=== PATIENT | male | born 1945 | race Caucasian/White ===

== ENCOUNTER 2017-01-21 07:13 | Emergency (ER) | payer OTHER ==
[2017-01-21 07:21] VITALS: BP 150/71
--- NOTE | 2017-01-21 07:55 | ER Document Report ---
ED Skin Rash/Insect Bite/Abscs - General Chief Complaint: Skin Problem Stated Complaint: POSSIBLE BUG BITE Time seen by provider: 07:46 Mode of Arrival: Ambulatory Information source: Patient Notes: 71-year-old male presents to ED for small blister on the lateral aspect of the upper left foot. No signs of infection no drainage small open wound where it has been scratched open. He is a diabetic and noticed this wound 5 days ago it is not getting infected but it is not getting better he states. TRAVEL OUTSIDE OF THE [place] IN LAST 30 DAYS: No - HPI Patient complains to provider of: Skin rash/lesion Onset: Other - 5 days Onset/Duration: Gradual Quality of pain: Sharp Severity: Moderate Pain Level: 3 Skin Character: Other - Small open blister Skin Temperature: Warm Quality of rash: Painful Identify cause: No Exacerbated by: Denies Relieved by: Denies Similar symptoms previously: No Recently seen / treated by doctor: No - Related Data Allergies/Adverse Reactions: No Known Allergies Allergy (Verified 01/21/17 07:21) Past Medical History - General Information source: Patient - Social History Smoking Status: Never Smoker Cigarette use (# per day): No Chew tobacco use (# tins/day): No Smoking Education Provided: No Frequency of alcohol use: None Drug Abuse: None Occupation: retired Lives with: Family Family History: CAD, DM, Hyperlipidemia, Hypertension, Malignancy, Thyroid Disfunction, Other - Black lung Patient has suicidal ideation: No Patient has homicidal ideation: No - Past Medical History Cardiac Medical History: Reports: Hx Heart Attack, Hx Hypercholesterolemia, Hx Hypertension Pulmonary Medical History: Reports: Hx Bronchitis EENT Medical History: Reports: None Neurological Medical History: Reports: None Endocrine Medical History: Reports: Hx Diabetes Mellitus Type 2, Hx Hypothyroidism Renal/ Medical History: Reports: None Malignancy Medical History: Reports None GI Medical History: Reports: None Musculoskeltal Medical History: Reports Hx Arthritis, Reports Hx Musculoskeletal Trauma Skin Medical History: Reports None Psychiatric Medical History: Reports: None Traumatic Medical History: Reports: Hx Fractures Infectious Medical History: Reports: None Surgical Hx: Negative Past Surgical History: Reports: None - Immunizations Hx Diphtheria, Pertussis, Tetanus Vaccination: No Review of Systems - Review of Systems Constitutional: No symptoms reported EENT: No symptoms reported Cardiovascular: No symptoms reported Respiratory: No symptoms reported Gastrointestinal: No symptoms reported Genitourinary: No symptoms reported Male Genitourinary: No symptoms reported Musculoskeletal: No symptoms reported Skin: Other - Small open blister to the lateral aspect of the left upper foot Hematologic/Lymphatic: No symptoms reported Neurological/Psychological: No symptoms reported -: Yes All other systems reviewed and negative Physical Exam - Vital signs Vitals: Temp Pulse Resp BP Pulse Ox 97.4 F 71 18 150/71 H 97 01/21/17 07:16 01/21/17 07:16 01/21/17 07:16 01/21/17 07:16 01/21/17 07:16 Interpretation: Normal - General General appearance: Appears well, Alert - HEENT Head: Normocephalic, Atraumatic Eyes: Normal Pupils: PERRL - Respiratory Respiratory status: No respiratory distress Chest status: Nontender Breath sounds: Normal Chest palpation: Normal - Cardiovascular Rhythm: Regular Heart sounds: Normal auscultation Murmur: No - Abdominal Inspection: Normal Distension: No distension Bowel sounds: Normal Tenderness: Nontender Organomegaly: No organomegaly - Back Back: Normal, Nontender - Extremities General upper extremity: Normal inspection, Nontender, Normal color, Normal ROM , Normal temperature General lower extremity: Normal color, Normal ROM, Normal temperature, Normal weight bearing. No: Kris's sign Ankle: Tender, Other - Opened blister to the lateral aspect of the left upper foot no drainage no signs of infection - Neurological Neuro grossly intact: Yes Cognition: Normal Orientation: AAOx4 Leonila Coma Scale Eye Opening: Spontaneous Leonila Coma Scale Verbal: Oriented Leonila Coma Scale Motor: Obeys Commands Leonila Coma Scale Total: 15 Speech: Normal Motor strength normal: LUE, RUE, LLE, RLE Sensory: Normal - Psychological Associated symptoms: Normal affect, Normal mood - Skin Skin Temperature: Warm Skin Moisture: Dry Skin Color: Normal Course - Vital Signs Vital signs: Temp Pulse Resp BP Pulse Ox 97.4 F 71 18 150/71 H 97 01/21/17 07:18 01/21/17 07:18 01/21/17 07:18 01/21/17 07:18 01/21/17 07:18 Discharge - Discharge Clinical Impression: blister to uppper lateral left foot Disposition: HOME, SELF-CARE Instructions: Family Physicians / Practices Additional Instructions: You have an open blister left lateral foot. This will need to be clean with warm soapy for 2-3 times a day and covered with bacitracin and a sterile gauze or Band-Aid. This will need to be checked each time he change the dressing as your diabetic to ensure that is not infected. FOLLOW-UP CARE: If you have been referred to a physician for follow-up care, call the physician s office for an appointment as you were instructed or within the next two days. If you experience worsening or a significant change in your symptoms, notify the physician immediately or return to the Emergency Department at any time for re-evaluation. Forms: Elevated Blood Pressure
== END 2017-01-21 08:00 | disposition home or self-care (01) ==
LOC: ER 07:13
DX: S90.822A Blister (nonthermal), left foot, initial encounter (principal); X58.XXXA Exposure to other specified factors, initial encounter; E78.00 Pure hypercholesterolemia, unspecified; I10 Essential (primary) hypertension; E11.9 Type 2 diabetes mellitus without complications; E03.9 Hypothyroidism, unspecified; I25.2 Old myocardial infarction
CPT/HCPCS: 99281

== ENCOUNTER 2018-01-01 12:27 | Emergency (ER) | payer MEDICARE, OTHER ==
--- NOTE | 2018-01-01 12:42 | ER Document Report ---
ED Medical Screen (RME) - General Chief Complaint: Numbness of Arm Stated Complaint: LEFT ARM NUMBNESS Time Seen by Provider: 01/01/18 12:42 Notes: Patient is a difficult historian. Patient has several different complaints. He does state that he woke up this morning and got the sudden onset of left hand numbness at 10 AM. He states this is an arm that has given him trouble for years with some fingertip numbness and chronic pain. He states 1 week ago he had an MRI done which was unremarkable. TRAVEL OUTSIDE OF THE [place] IN LAST 30 DAYS: No - Related Data Allergies/Adverse Reactions: No Known Allergies Allergy (Verified 01/21/17 07:21) Past Medical History - Past Medical History Cardiac Medical History: Reports: Hx Heart Attack, Hx Hypercholesterolemia, Hx Hypertension Pulmonary Medical History: Reports: Hx Bronchitis Endocrine Medical History: Reports: Hx Diabetes Mellitus Type 2, Hx Hypothyroidism Renal/ Medical History: Denies: Hx Peritoneal Dialysis Musculoskeltal Medical History: Reports Hx Arthritis, Reports Hx Musculoskeletal Trauma Traumatic Medical History: Reports: Hx Fractures - Immunizations Hx Diphtheria, Pertussis, Tetanus Vaccination: No Physical Exam - Vital signs Vitals: Temp Pulse Resp BP Pulse Ox 97.8 F 73 16 170/78 H 98 01/01/18 12:33 01/01/18 12:33 01/01/18 12:33 01/01/18 12:33 01/01/18 12:33 Course - Vital Signs Vital signs: Temp Pulse Resp BP Pulse Ox 97.8 F 73 16 170/78 H 98 01/01/18 12:33 01/01/18 12:33 01/01/18 12:33 01/01/18 12:33 01/01/18 12:33
--- NOTE | 2018-01-01 13:04 | RADIOLOGY REPORT (SQ) ---
EXAM DESCRIPTION: CT HEAD WITHOUT COMPLETED DATE/TIME: 01/01/2018 12:45 pm REASON FOR STUDY: L arm numbness, confusion COMPARISON: None. TECHNIQUE: Axial images acquired through the brain without intravenous contrast. Images reviewed wi th bone, brain and subdural windows. Additional sagittal and coronal reconstructions were generated. Images stored on PACS. All CT scanners at this facility use dose modulation, iterative reconstruction, and/or weight based d osing when appropriate to reduce radiation dose to as low as reasonably achievable (ALARA). [facility]: Dose Right [facility]: CareDose [facility]: Dose Right [facility]: Teradose 4D [facility]: Smart Conformiq RADIATION DOSE: CT Rad equipment meets quality standard of care and radiation dose reduction techniq ues were employed. CTDIvol: 53.2 mGy. DLP: 964 mGy-cm.mGy. LIMITATIONS: None. FINDINGS: VENTRICLES: Prominent. CEREBRUM: No masses. No hemorrhage. No midline shift. Areas of low density in the white matter mos t likely due to chronic micro-vascular ischemic change. No evidence for acute infarction. CEREBELLUM: No masses. No hemorrhage. No alteration of density. No evidence for acute infarction. EXTRAAXIAL SPACES: Age-related involutional change. No fluid collections. No masses. ORBITS AND GLOBE: No intra- or extraconal masses. Normal contour of globe without masses. CALVARIUM: No fracture. PARANASAL SINUSES: No fluid or mucosal thickening. SOFT TISSUES: No mass or hematoma. OTHER: No other significant finding. IMPRESSION: CHRONIC CHANGES OF ATROPHY AND MICROVASCULAR ISCHEMIA. NO ACUTE PROCESS. EVIDENCE OF ACUTE STROKE: NO. COMMENT: Pertinent positive or negative findings of the imaging study reported as a CRITICAL EXAM t gideon PAIGE MD at12:58 on 01/01/2018. Category of Critical Exam: Stroke alert. TECHNICAL DOCUMENTATION: JOB ID: [id number] Quality ID # [id number]: Final reports with documentation of one or more dose reduction techniques (e.g., Au tomated exposure control, adjustment of the mA and/or kV according to patient size, use of iterative reconstruction technique) 2010 [employer]- All Rights Reserved Reading location - IP/workstation name: [email or web address]
--- NOTE | 2018-01-01 13:10 | RADIOLOGY REPORT (SQ) ---
EXAM DESCRIPTION: CHEST SINGLE VIEW COMPLETED DATE/TIME: 01/01/2018 12:50 pm REASON FOR STUDY: STROKE PROTOCOL COMPARISON: None. EXAM PARAMETERS: NUMBER OF VIEWS: One view. TECHNIQUE: Single frontal radiographic view of the chest acquired. RADIATION DOSE: NA LIMITATIONS: None. FINDINGS: LUNGS AND PLEURA: No opacities, masses or pneumothorax. No pleural effusion. MEDIASTINUM AND HILAR STRUCTURES: No masses. Contour normal. HEART AND VASCULAR STRUCTURES: Heart normal in size. Normal vasculature. BONES: No acute findings. HARDWARE: None in the chest. OTHER: No other significant finding. IMPRESSION: NO ACUTE RADIOGRAPHIC FINDING IN THE CHEST. TECHNICAL DOCUMENTATION: JOB ID: [id number] [employer]- All Rights Reserved Reading location - IP/workstation name: [email or web address]
[2018-01-01] MEDS ORDERED: ASPIRIN 81 MG TABLET, CHEWABLE PO ONE (13:21)
[2018-01-01 13:46] LABS: ABSOLUTE BASOPHILS # (AUTO) 0.1 10^3/uL (0.0-0.2); ABSOLUTE EOSINOPHILS # (AUTO) 0.3 10^3/uL (0.0-0.6); ABSOLUTE LYMPHOCYTES (AUTO) 2.4 10^3/uL (0.5-4.7); ABSOLUTE MONOCYTES (AUTO) 0.7 10^3/uL (0.1-1.4); ABSOLUTE NEUT (AUTO) 6.1 10^3/uL (1.7-8.2); BASOPHILS % (AUTO) 1.2 % (0-2); EOSINOPHILS % (AUTO) 3.2 % (0-6); HEMATOCRIT 35.6 % (37.9-51.0); LYMPHOCYTES % (AUTO) 25.3 % (13-45); MEAN CORPUSCULAR HEMOGLOBIN 29.1 pg (27.0-33.4); MEAN CORPUSCULAR HGB CONC 33.9 g/dL (32.0-36.0); MEAN CORPUSCULAR VOLUME 86 fl (80-97); MONOCYTES % (AUTO) 7.4 % (3-13); PLATELET COUNT 217 10^3/uL (150-450); RED BLOOD COUNT 4.13 10^6/uL (4.35-5.55); RED CELL DISTRIBUTION WIDTH 14.1 % (11.5-14.0); SEGMENTED NEUTROPHILS % (AUTO) 62.9 % (42-78); TOTAL CELLS COUNTED % (AUTO) 100 %; WHITE BLOOD COUNT 9.7 10^3/uL (4.0-10.5)
[2018-01-01 14:09] LABS: ALANINE AMINOTRANSFERASE 28 U/L (21-72); ALBUMIN 4.2 g/dL (3.5-5.0); ALKALINE PHOSPHATASE 74 U/L (38-126); ANION GAP 13 (5-19); ASPARTATE AMINO TRANSFERASE 23 U/L (17-59); BILIRUBIN,DIRECT 0.3 mg/dL (0.0-0.4); BILIRUBIN,TOTAL 0.3 mg/dL (0.2-1.3); BLOOD UREA NITROGEN 23 mg/dL (7-20); CALCIUM 9.6 mg/dL (8.4-10.2); CARBON DIOXIDE 25 mmol/L (22-30); CHLORIDE 102 mmol/L (98-107); CREATINE KINASE 47 U/L (55-170); GLUCOSE 131 mg/dL (75-110); POTASSIUM 4.4 mmol/L (3.6-5.0); SODIUM 140.3 mmol/L (137-145)
[2018-01-01 14:28] LABS: TROPONIN I < 0.012 ng/mL
--- NOTE | 2018-01-01 14:37 | EKG REPORT ---
SEVERITY:- ABNORMAL ECG - SINUS RHYTHM NONSPECIFIC INTRAVENTRICULAR CONDUCTION DELAY : Confirmed by: Gordy Vargas MD 01-Jan-2018 14:37:01
--- NOTE | 2018-01-01 15:07 | ER Document Report ---
ED General - General Chief Complaint: Numbness of Arm Stated Complaint: LEFT ARM NUMBNESS Time Seen by Provider: 01/01/18 12:42 Mode of Arrival: Ambulatory Information source: Patient Notes: History of complain-72 years old male with a chronic history of neck pain left shoulder pain and left arm numbness presents today with exacerbation. The pain radiated from the neck all the way down to the arm. He was sent over here by the primary care physician to rule out cardiac event. Denied any precordial chest pain nausea vomiting palpitation or diaphoresis. REVIEW OF SYSTEMS: CONSTITUTIONAL : Denies fever, chills, or sweats. Denies recent illness. EENT: Denies eye, ear, throat, or mouth pain or symptoms. Denies nasal or sinus congestion or discharge. Denies throat, tongue, or mouth swelling or difficulty swallowing. CARDIOVASCULAR: Denies chest pain. Denies palpitations or racing or irregular heart beat. Denies ankle edema. RESPIRATORY: Denies cough, cold, or chest congestion. Denies shortness of breath, difficulty breathing, or wheezing. GASTROINTESTINAL: Denies abdominal pain or distention. Denies nausea, vomiting , or diarrhea. Denies blood in vomitus, stools, or per rectum. Denies black, tarry stools. Denies constipation. GENITOURINARY: Denies difficulty urinating, painful urination, burning, frequency, blood in urine, or discharge. MUSCULOSKELETAL: Denies back or neck pain or stiffness. Denies joint pain or swelling. SKIN: Denies rash, lesions or sores. HEMATOLOGIC : Denies easy bruising or bleeding. LYMPHATIC: Denies swollen, enlarged glands. NEUROLOGICAL: Denies confusion or altered mental status. Denies passing out or loss of consciousness. Denies dizziness or lightheadedness. Denies headache. Denies weakness or paralysis or loss of use of either side. Denies problems with gait or speech. Denies sensory loss, numbness, or tingling. Denies seizures. PSYCHIATRIC: Denies anxiety or stress. Denies depression, suicidal ideation, or homicidal ideation. ALL OTHER SYSTEMS REVIEWED AND NEGATIVE. Dictation was performed using [employer] recognition software PHYSICAL EXAMINATION: GENERAL: Well-appearing, well-nourished and in no acute distress. HEAD: Atraumatic, normocephalic. EYES: Pupils equal round and reactive to light, extraocular movements intact, sclera anicteric, conjunctiva are normal. ENT: Nares patent, oropharynx clear without exudates. Moist mucous membranes. NECK: Normal range of motion, supple without lymphadenopathy Sharp tenderness were noted on palpation over the left paraspinal muscles including scalene and sternocleidomastoid muscles. LUNGS: Breath sounds clear to auscultation bilaterally and equal. No wheezes rales or rhonchi. HEART: Regular rate and rhythm without murmurs ABDOMEN: Soft, nontender, nondistended abdomen. No guarding, no rebound. No masses appreciated. Musculoskeletal: Normal range of motion, no pitting or edema. No cyanosis. Right shoulder range of motion is within normal limit. Neurovascular function distally was within normal limit. NEUROLOGICAL: Cranial nerves grossly intact. Normal speech, normal gait. Normal sensory, motor exams PSYCH: Normal mood, normal affect. SKIN: Warm, Dry, normal turgor, no rashes or lesions noted. History of complain history of complain TRAVEL OUTSIDE OF THE [place] IN LAST 30 DAYS: No - Related Data Allergies/Adverse Reactions: No Known Allergies Allergy (Verified 01/21/17 07:21) Past Medical History - General Information source: Patient - Social History Smoking Status: Former Smoker Chew tobacco use (# tins/day): No Drug Abuse: None Family History: CAD, DM, Hyperlipidemia, Hypertension, Malignancy, Thyroid Disfunction, Other - Black lung Patient has suicidal ideation: No Patient has homicidal ideation: No - Past Medical History Cardiac Medical History: Reports: Hx Heart Attack, Hx Hypercholesterolemia, Hx Hypertension Pulmonary Medical History: Reports: Hx Bronchitis Endocrine Medical History: Reports: Hx Diabetes Mellitus Type 2, Hx Hypothyroidism Renal/ Medical History: Denies: Hx Peritoneal Dialysis Musculoskeltal Medical History: Reports Hx Arthritis, Reports Hx Musculoskeletal Trauma Traumatic Medical History: Reports: Hx Fractures - Immunizations Hx Diphtheria, Pertussis, Tetanus Vaccination: No Review of Systems - Review of Systems Notes: Unremarkable Constitutional: denies: No symptoms reported, See HPI, Chills, Diaphoresis, Fever, Malaise, Weakness, Other, Weight gain, Weight loss, Recent illness EENT: denies: No symptoms reported, See HPI, Eye pain, Eye discharge, Blurred vision, Tearing, Double vision, Ear pain, Ear discharge, Nose pain, Nose congestion, Nose discharge, Sinus pressure, Sinus discharge, Throat pain, Difficulty swallowing, Throat swelling, Mouth pain, Mouth swelling, Dental problem, Vertigo, Other Cardiovascular: denies: No symptoms reported, See HPI, Chest pain, Palpitations , Heart racing, Orthopnea, Dyspnea, Syncope, Dizziness, Lightheaded, Edema, Other, Paroxysmal Nocturnal Dysp Respiratory: denies: No symptoms reported, See HPI, Cough, Hurts to breathe, Hemoptysis, Short of breath, Sputum, Stridor, Wheezing, Other Gastrointestinal: denies: No symptoms reported, See HPI, Abdomen distended, Abdominal pain, Diarrhea, Nausea, Vomiting, Constipation, Blood streaked bowels , Poor appetite, Poor fluid intake, Blood in vomit, Black stools, Rectal bleeding, Last bowel movement, Fecal incontinence, Other Genitourinary: denies: No symptoms reported, See HPI, Burning, Dysuria, Discharge, Frequency, Flank pain, Hematuria, Incontinence, Pain, Urgency, Retention, Other Male Genitourinary: denies: No symptoms reported, See HPI, Erectile dysfunction , Testicular pain, Penile discharge, Other Skin: denies: No symptoms reported, See HPI, Change in color, Change in hair/ nails, Dryness, Lesions, Lumps, Rash, Other Neurological/Psychological: denies: No symptoms reported, See HPI, Confusion, Dementia, Depression, Hallucinations, Anxiety, Homicidal ideation, Sensory change, Weakness, Gait changes, Loss of power, Paralysis, Seizure, Lost consciousness, Headaches, Speech impairment, Numbness, Suicidal ideation, Tingling, Tremor, Other Physical Exam - Vital signs Vitals: Temp Pulse Resp BP Pulse Ox 97.8 F 73 16 170/78 H 98 01/01/18 12:33 01/01/18 12:33 01/01/18 12:01/01/18 12:01/01/18 12:33 Course - Re-evaluation Re-evalutation: 01/01/18 15:04 His enzyme and cardiogram was normal. He was discharged home with instruction to follow-up with neurology and possible MRA of the neck. - Vital Signs Vital signs: Temp Pulse Resp BP Pulse Ox 97.8 F 73 16 170/78 H 100 01/01/18 12:33 01/01/18 12:33 01/01/18 12:33 01/01/18 12:01/01/18 13:22 - Laboratory Result Diagrams: 01/01/18 13:10 01/01/18 13:10 Laboratory results interpreted by me: 01/01/18 01/01/18 01/01/18 13:09 13:10 13:10 RBC 4.13 L Hgb 12.0 L Hct 35.6 L RDW 14.1 H BUN 23 H Glucose 131 H POC Glucose 142 H Creatine Kinase 47 L - Diagnostic Test Radiology reviewed: Reports reviewed - 1. CT of the brain reported by radiologist as no acute bleed, microvascular disease 2. Chest x-ray reported by radiologist as unremarkable. - EKG Interpretation by Me EKG shows normal: Sinus rhythm Rate: Normal Rhythm: NSR - Normal sinus rhythm at the rate of 72 bpm normal axis no acute ST elevation ST depression T-wave inversion noted. Discharge - Discharge Clinical Impression: Cervical radiculopathy Condition: Fair Disposition: HOME, SELF-CARE Instructions: Radiculopathy ([facility]) Prescriptions: Hydrocodone/Acetaminophen [Vicodin 5-300 mg Tablet] 1 each PO Q6HP PRN #14 tablet PRN Reason: Baclofen [Baclofen 10 mg Tablet] 10 mg PO TID #30 tablet
[2018-01-01 16:09] VITALS: BP 140/76
== END 2018-01-01 15:40 | disposition home or self-care (01) ==
LOC: ER 12:27
DX: M54.12 Radiculopathy, cervical region (principal); R20.0 Anesthesia of skin; M54.2 Cervicalgia; G89.29 Other chronic pain; M25.512 Pain in left shoulder; Z87.891 Personal history of nicotine dependence; I25.2 Old myocardial infarction; I10 Essential (primary) hypertension; E11.9 Type 2 diabetes mellitus without complications
CPT/HCPCS: 36415; 70450; 71045; 80053; 82550; 82553; 82962; 84484; 85025; 93005; 93010; 99285

== ENCOUNTER 2018-12-11 14:41 | Emergency (ER) | payer OTHER ==
--- NOTE | 2018-12-11 15:59 | ER Document Report ---
ED Medical Screen (RME) - General Chief Complaint: Numbness of Arm Stated Complaint: ARM NUMBNESS Time Seen by Provider: 12/11/18 15:54 Mode of Arrival: Ambulatory Information source: Patient Notes: 73-year-old male presents to ED for complaint of numbness to the left arm and leg intermittently for the last 2 days today is the third day. He states earlier he was not able to move the left arm and that scared him so he came to the emergency room. He has a history of diabetes high blood pressure hypothyroid and coronary artery disease. His Accu-Chek in the emergency room was 316.. Patient is alert oriented respirations regular and unlabored speaking in full sentences he is able to walk with a steady gait. He is with his . I have greeted and performed a rapid initial assessment of this patient. A comprehensive ED assessment and evaluation of the patient, analysis of test results and completion of medical decision making process will be conducted by an additional ED providers. TRAVEL OUTSIDE OF THE [place] IN LAST 30 DAYS: No - Related Data Allergies/Adverse Reactions: No Known Allergies Allergy (Verified 12/11/18 14:48) Past Medical History - Social History Chew tobacco use (# tins/day): No Frequency of alcohol use: None Drug Abuse: None - Past Medical History Cardiac Medical History: Reports: Hx Heart Attack, Hx Hypercholesterolemia, Hx H ypertension Pulmonary Medical History: Reports: Hx Bronchitis Endocrine Medical History: Reports: Hx Diabetes Mellitus Type 2, Hx Hypothyroidism Renal/ Medical History: Denies: Hx Peritoneal Dialysis Musculoskeltal Medical History: Reports Hx Arthritis, Reports Hx Musculoskeletal Trauma Traumatic Medical History: Reports: Hx Fractures - Immunizations Hx Diphtheria, Pertussis, Tetanus Vaccination: No Physical Exam - Vital signs Vitals: Temp Pulse Resp BP Pulse Ox 97.5 F 85 17 157/68 H 94 12/11/18 14:59 12/11/18 14:59 12/11/18 14:59 12/11/18 14:59 12/11/18 14:59 Course - Vital Signs Vital signs: Temp Pulse Resp BP Pulse Ox 97.5 F 85 17 157/68 H 94 12/11/18 14:59 12/11/18 14:59 12/11/18 14:59 12/11/18 14:59 12/11/18 14:59
[2018-12-11 16:28] LABS: ABSOLUTE BASOPHILS # (AUTO) 0.1 10^3/uL (0.0-0.2); ABSOLUTE EOSINOPHILS # (AUTO) 0.2 10^3/uL (0.0-0.6); ABSOLUTE LYMPHOCYTES (AUTO) 2.1 10^3/uL (0.5-4.7); ABSOLUTE MONOCYTES (AUTO) 0.5 10^3/uL (0.1-1.4); ABSOLUTE NEUT (AUTO) 5.9 10^3/uL (1.7-8.2); BASOPHILS % (AUTO) 1.1 % (0-2); EOSINOPHILS % (AUTO) 2.2 % (0-6); HEMATOCRIT 39.8 % (37.9-51.0); HEMOGLOBIN 13.5 g/dL (13.5-17.0); LYMPHOCYTES % (AUTO) 23.9 % (13-45); MEAN CORPUSCULAR HEMOGLOBIN 29.4 pg (27.0-33.4); MEAN CORPUSCULAR VOLUME 87 fl (80-97); MONOCYTES % (AUTO) 5.9 % (3-13); PLATELET COUNT 245 10^3/uL (150-450); RED CELL DISTRIBUTION WIDTH 13.8 % (11.5-14.0); SEGMENTED NEUTROPHILS % (AUTO) 66.9 % (42-78); TOTAL CELLS COUNTED % (AUTO) 100 %; WHITE BLOOD COUNT 8.8 10^3/uL (4.0-10.5)
--- NOTE | 2018-12-11 16:29 | RADIOLOGY REPORT (SQ) ---
EXAM DESCRIPTION: CHEST 2 VIEWS COMPLETED DATE/TIME: 12/11/2018 4:19 pm REASON FOR STUDY: intermittent numbness to left arm x 3 days COMPARISON: None. TECHNIQUE: Frontal and lateral radiographic views of the chest acquired. NUMBER OF VIEWS: Two view. LIMITATIONS: None. FINDINGS: LUNGS AND PLEURA: No opacities, masses or pneumothorax. No pleural effusion. MEDIASTINUM AND HILAR STRUCTURES: No masses or contour abnormalities. HEART AND VASCULAR STRUCTURES: Heart normal size. No evidence for failure. BONES: No acute findings. HARDWARE: None in the chest. OTHER: No other significant finding. IMPRESSION: NO SIGNIFICANT RADIOGRAPHIC FINDING IN THE CHEST. TECHNICAL DOCUMENTATION: JOB ID: [id number] [employer]- All Rights Reserved Reading location - IP/workstation name: [email or web address]
[2018-12-11 16:31] LABS: APPEARANCE,URINE CLEAR; BILIRUBIN,URINE NEGATIVE (NEGATIVE); COLOR,URINE YELLOW; GLUCOSE, URINE >=500 mg/dL (NEGATIVE); KETONES,URINE NEGATIVE (NEGATIVE); LEUKOCYTE ESTERASE,URINE TRACE (NEGATIVE); NITRITE,URINE NEGATIVE (NEGATIVE); PROTEIN,URINE NEGATIVE (NEGATIVE); URINE SPECIFIC GRAVITY 1.012; UROBILINOGEN,URINE NEGATIVE mg/dL (<2.0)
[2018-12-11 16:33] LABS: INTERNATIONAL RATION (INR) 0.93; PROTHROMBIN TIME 12.9 SEC (11.4-15.4)
[2018-12-11 16:34] LABS: PARTIAL THROMBOPLASTIN TIME 27.7 SEC (23.5-35.8)
--- NOTE | 2018-12-11 16:37 | RADIOLOGY REPORT (SQ) ---
EXAM DESCRIPTION: CT HEAD WITHOUT COMPLETED DATE/TIME: 12/11/2018 4:26 pm REASON FOR STUDY: intermittent numbness to left arm x 3 days COMPARISON: None. TECHNIQUE: Axial images acquired through the brain without intravenous contrast. Images reviewed wi th bone, brain and subdural windows. Additional sagittal and coronal reconstructions were generated. Images stored on PACS. All CT scanners at this facility use dose modulation, iterative reconstruction, and/or weight based d osing when appropriate to reduce radiation dose to as low as reasonably achievable (ALARA). [facility]: Dose Right [facility]: CareDose [facility]: Dose Right [facility]: Teradose 4D [facility]: [employer] RADIATION DOSE: CT Rad equipment meets quality standard of care and radiation dose reduction techniq ues were employed. CTDIvol: 53.2 mGy. DLP: 1017 mGy-cm.mGy. LIMITATIONS: None. FINDINGS: VENTRICLES: Prominent. CEREBRUM: No masses. No hemorrhage. No midline shift. Areas of low density in the white matter mos t likely due to chronic micro-vascular ischemic change. No evidence for acute infarction. CEREBELLUM: No masses. No hemorrhage. No alteration of density. No evidence for acute infarction. EXTRAAXIAL SPACES: Age-related involutional change. No fluid collections. No masses. ORBITS AND GLOBE: No intra- or extraconal masses. Normal contour of globe without masses. CALVARIUM: No fracture. PARANASAL SINUSES: Opacified right maxillary sinus. SOFT TISSUES: No mass or hematoma. OTHER: No other significant finding. IMPRESSION: CHRONIC CHANGES OF ATROPHY AND MICROVASCULAR ISCHEMIA. NO ACUTE PROCESS. EVIDENCE OF ACUTE STROKE: NO. TECHNICAL DOCUMENTATION: JOB ID: [id number] Quality ID # [id number]: Final reports with documentation of one or more dose reduction techniques (e.g., Au tomated exposure control, adjustment of the mA and/or kV according to patient size, use of iterative reconstruction technique) 2010 [employer]- All Rights Reserved Reading location - IP/workstation name: [email or web address]
[2018-12-11 16:45] LABS: ALANINE AMINOTRANSFERASE 38 U/L (21-72); ALBUMIN 4.6 g/dL (3.5-5.0); ALKALINE PHOSPHATASE 104 U/L (38-126); ANION GAP 12 (5-19); ASPARTATE AMINO TRANSFERASE 21 U/L (17-59); BILIRUBIN,DIRECT 0.2 mg/dL (0.0-0.4); BILIRUBIN,TOTAL 0.3 mg/dL (0.2-1.3); BLOOD UREA NITROGEN 21 mg/dL (7-20); CALCIUM 10.1 mg/dL (8.4-10.2); CARBON DIOXIDE 28 mmol/L (22-30); CHLORIDE 100 mmol/L (98-107); GLUCOSE 334 mg/dL (75-110); SODIUM 139.9 mmol/L (137-145); TOTAL PROTEIN 7.3 g/dL (6.3-8.2)
--- NOTE | 2018-12-11 18:13 | EKG REPORT ---
SEVERITY:- NORMAL ECG - SINUS RHYTHM : Confirmed by: Kathryn Fragoso MD 11-Dec-2018 18:13:17
--- NOTE | 2018-12-11 19:16 | ER Document Report ---
ED General - General Chief Complaint: Numbness of Arm Stated Complaint: ARM NUMBNESS Time Seen by Provider: 12/11/18 15:54 Mode of Arrival: Ambulatory Notes: Patient is a 73-year-old male with a past medical history of hypertension, diabetes, presents with 2 days of intermittent left upper extremity paresthesias and pain. Patient states that is more of a shooting, electric type pain into the left upper extremity starting his trapezius and his left shoulder. Has had similar pains for several years but became worse in the past several days and was referred to the emergency department by the [facility] administration. The patient denies any symptoms at the time of my evaluation. States that when he takes aspirin the pain seems to go away. He states that when he bends his neck or sleeps incorrectly it seems to trigger the pain. Denies headache, chest pain or shortness of breath. When pain is present is described as a moderate to severe pain. TRAVEL OUTSIDE OF THE [place] IN LAST 30 DAYS: No - Related Data Allergies/Adverse Reactions: No Known Allergies Allergy (Verified 12/11/18 14:48) Past Medical History - General Information source: Patient - Social History Smoking Status: Never Smoker Chew tobacco use (# tins/day): No Frequency of alcohol use: None Drug Abuse: None Lives with: Spouse/Significant other Family History: CAD, DM, Hyperlipidemia, Hypertension, Malignancy, Thyroid Disfunction, Other - Black lung Patient has suicidal ideation: No Patient has homicidal ideation: No - Past Medical History Cardiac Medical History: Reports: Hx Heart Attack, Hx Hypercholesterolemia, Hx Hypertension Pulmonary Medical History: Reports: Hx Bronchitis Endocrine Medical History: Reports: Hx Diabetes Mellitus Type 2, Hx Hypothyroidism Renal/ Medical History: Denies: Hx Peritoneal Dialysis Musculoskeletal Medical History: Reports Hx Arthritis, Reports Hx Musculoskeletal Trauma Traumatic Medical History: Reports: Hx Fractures - Immunizations Hx Diphtheria, Pertussis, Tetanus Vaccination: No Review of Systems - Review of Systems Notes: Constitutional: Negative for fever. HENT: Negative for sore throat. Eyes: Negative for visual changes. Cardiovascular: Negative for chest pain. Respiratory: Negative for shortness of breath. Gastrointestinal: Negative for abdominal pain, vomiting or diarrhea. Genitourinary: Negative for dysuria. Musculoskeletal: Left upper extremity pain Skin: Negative for rash. Neurological: Positive for left upper extremity paresthesias and pain 10 point ROS negative except as marked above and in HPI. Physical Exam - Vital signs Vitals: Temp Pulse Resp BP Pulse Ox 97.5 F 85 17 157/68 H 94 12/11/18 14:59 12/11/18 14:59 12/11/18 14:59 12/11/18 14:59 12/11/18 14:59 Interpretation: Hypertensive Notes: PHYSICAL EXAMINATION: GENERAL: Well-appearing, well-nourished and in no acute distress. HEAD: Atraumatic, normocephalic. EYES: Pupils equal round and reactive to light, extraocular movements intact, s clera anicteric, conjunctiva are normal. ENT: nares patent, oropharynx clear without exudates. Moist mucous membranes. NECK: Normal range of motion, supple without lymphadenopathy LUNGS: Breath sounds clear to auscultation bilaterally and equal. No wheezes rales or rhonchi. HEART: Regular rate and rhythm without murmurs ABDOMEN: Soft, nontender, normoactive bowel sounds. No guarding, no rebound. No masses appreciated. EXTREMITIES: Normal range of motion, no pitting or edema. No cyanosis. NEUROLOGICAL: Face symmetric. Tongue protrudes midline. Extraocular motions intact. Pupils are 2 mm and equally reactive. Normal speech, normal gait. 5 out of 5 strength in both the distal and proximal upper and lower extremities bilaterally. Sensation is grossly intact throughout. Finger to nose testing normal. Pronator drift normal. PSYCH: Normal mood, normal affect. SKIN: Warm, Dry, normal turgor, no rashes or lesions noted. Course - Re-evaluation Re-evalutation: 12/11/18 19:13 Patient presents with intermittent left upper extremity paresthesias without any focal deficits on exam. Has been on and off for the past 2 days although he has been to the emergency department in the past for the same as recently as one year ago. Patient has a reassuring evaluation today on labs and imaging. No evidence of CVA on CT which should demonstrate any evidence of acute CVA given that his symptoms have been present for greater than 48 hours. I do not suspect TIA or CVA based on history and exam. Patient is otherwise very well in appearance. States he [facility]. At this time will discharge with return precautions and follow-up recommendations. Verbal discharge instructions given a the bedside and opportunity for questions given. Medication warnings reviewed. Patient is in agreement with this plan and has verbalized understanding of return precautions and the need for primary care follow-up in the next 24-72 hours. - Vital Signs Vital signs: Temp Pulse Resp BP Pulse Ox 97.8 F 83 17 154/79 H 96 12/11/18 19:28 12/11/18 17:05 12/11/18 19:25 12/11/18 19:26 12/11/18 19:25 - Laboratory Result Diagrams: 12/11/18 16:13 12/11/18 16:13 Laboratory results interpreted by me: 12/11/18 12/11/18 12/11/18 15:51 15:57 16:13 BUN 21 H Creatinine 1.54 H Est GFR ( Amer) 54 L Est GFR (Non-Af Amer) 44 L Glucose 334 H POC Glucose 316 H Urine Glucose (UA) >=500 H Ur Leukocyte Esterase TRACE H - Diagnostic Test Radiology reviewed: Image reviewed, Reports reviewed Radiology results interpreted by me: 12/11/18 19:14 CT head: No acute intracranial bleed or mass Chest x-ray: No acute infiltrate - EKG Interpretation by Me Additional EKG results interpreted by me: 12/11/18 19:15 Sinus rhythm, rate 79. No ST elevations or depressions. QTC is 440. Discharge - Discharge Clinical Impression: Paresthesia of left upper extremity, Left upper limb pain Condition: Good Disposition: HOME, SELF-CARE Additional Instructions: Your labs and CT scan are reassuring today. I encourage you to follow-up with your primary care physician as well as neurology regarding her ongoing symptoms. Return if you develop loss of strength, loss of sensation, pass out, or have any other symptoms that are worrisome to you.
[2018-12-11 19:27] VITALS: BP 154/79
== END 2018-12-11 19:27 | disposition home or self-care (01) ==
LOC: ER 14:41
DX: R20.2 Paresthesia of skin (principal); M79.602 Pain in left arm; E78.00 Pure hypercholesterolemia, unspecified; I10 Essential (primary) hypertension; E11.9 Type 2 diabetes mellitus without complications; E03.9 Hypothyroidism, unspecified; I25.2 Old myocardial infarction
CPT/HCPCS: 36415; 70450; 71046; 80053; 81001; 82962; 84484; 85025; 85610; 85730; 93005; 93010; 99284

== ENCOUNTER 2018-12-12 12:52 | Inpatient (IN) | payer OTHER, MEDICARE ==
--- NOTE | 2018-12-12 13:19 | ER Document Report ---
ED Medical Screen (RME) - General Chief Complaint: S/S of Possible Stroke Stated Complaint: LEFT SIDE BODY WEAKNESS TRAVEL OUTSIDE OF THE [place] IN LAST 30 DAYS: No - HPI Notes: 12/12/18 13:18 Patient was seen last night for arm weakness and now is coming in states weakness in his left arm and left leg patient states he woke up this morning around 830 because of this after going home stated he felt fine he had a fall around 3:00 and was unable to get back to bed 2 5am. Patient otherwise has GCS of 15 stroke protocol has been initiated. - Related Data Allergies/Adverse Reactions: No Known Allergies Allergy (Verified 12/12/18 12:55) Past Medical History - Past Medical History Cardiac Medical History: Reports: Hx Heart Attack, Hx Hypercholesterolemia, Hx Hypertension Pulmonary Medical History: Reports: Hx Bronchitis Endocrine Medical History: Reports: Hx Diabetes Mellitus Type 2, Hx Hypothyroidism Renal/ Medical History: Denies: Hx Peritoneal Dialysis Musculoskeltal Medical History: Reports Hx Arthritis, Reports Hx Musculoskeletal Trauma Traumatic Medical History: Reports: Hx Fractures - Immunizations Hx Diphtheria, Pertussis, Tetanus Vaccination: No Physical Exam - Vital signs Vitals: Pulse Ox 97 12/12/18 13:17 Course - Vital Signs Vital signs: Temp Pulse Resp BP Pulse Ox 97 12/12/18 13:17
--- NOTE | 2018-12-12 13:35 | RADIOLOGY REPORT (SQ) ---
EXAM DESCRIPTION: CT HEAD WITHOUT COMPLETED DATE/TIME: 12/12/2018 1:00 pm REASON FOR STUDY: s/sx stroke COMPARISON: 12/11/2018 TECHNIQUE: Axial images acquired through the brain without intravenous contrast. Images reviewed wi th bone, brain and subdural windows. Images stored on PACS. All CT scanners at this facility use dose modulation, iterative reconstruction, and/or weight based d osing when appropriate to reduce radiation dose to as low as reasonably achievable (ALARA). [facility]: Dose Right [facility]: CareDose [facility]: Dose Right [facility]: Teradose 4D [facility]: Smart Audicus RADIATION DOSE: CT Rad equipment meets quality standard of care and radiation dose reduction techniq ues were employed. CTDIvol: 53.2 mGy. DLP: 1070 mGy-cm. mGy. LIMITATIONS: None. FINDINGS: VENTRICLES: Age-appropriate. CEREBRUM: No masses. No hemorrhage. No midline shift. Areas of low density in the white matter mos t likely due to chronic micro-vascular ischemic change. No evidence for acute infarction. CEREBELLUM: No masses. No hemorrhage. No alteration of density. No evidence for acute infarction. EXTRAAXIAL SPACES: Mild age-related involutional change. No fluid collections. No masses. ORBITS AND GLOBE: No intra- or extraconal masses. Normal contour of globe without masses. CALVARIUM: No fracture. PARANASAL SINUSES: Ethmoid and right maxillary mucosal thickening. SOFT TISSUES: No mass or hematoma. OTHER: No other significant finding. IMPRESSION: No acute intracranial findings. EVIDENCE OF ACUTE STROKE: NO. COMMENT: Results called to Dr. Garland at 1327 hours. TECHNICAL DOCUMENTATION: JOB ID: [id number] Quality ID # [id number]: Final reports with documentation of one or more dose reduction techniques (e.g., Au tomated exposure control, adjustment of the mA and/or kV according to patient size, use of iterative reconstruction technique) 2010 [email or web address]- All Rights Reserved Reading location - IP/workstation name: [email or web address]
[2018-12-12 13:39] LABS: INTERNATIONAL RATION (INR) 0.96
[2018-12-12 13:40] LABS: PARTIAL THROMBOPLASTIN TIME 27.7 SEC (23.5-35.8)
[2018-12-12 13:41] LABS: ABSOLUTE BASOPHILS # (AUTO) 0.1 10^3/uL (0.0-0.2); ABSOLUTE EOSINOPHILS # (AUTO) 0.2 10^3/uL (0.0-0.6); ABSOLUTE LYMPHOCYTES (AUTO) 1.8 10^3/uL (0.5-4.7); ABSOLUTE MONOCYTES (AUTO) 0.6 10^3/uL (0.1-1.4); ABSOLUTE NEUT (AUTO) 5.7 10^3/uL (1.7-8.2); BASOPHILS % (AUTO) 1.4 % (0-2); EOSINOPHILS % (AUTO) 2.7 % (0-6); HEMATOCRIT 38.2 % (37.9-51.0); HEMOGLOBIN 13.3 g/dL (13.5-17.0); LYMPHOCYTES % (AUTO) 21.5 % (13-45); MEAN CORPUSCULAR HEMOGLOBIN 29.8 pg (27.0-33.4); MEAN CORPUSCULAR HGB CONC 34.7 g/dL (32.0-36.0); MEAN CORPUSCULAR VOLUME 86 fl (80-97); MONOCYTES % (AUTO) 6.8 % (3-13); PLATELET COUNT 220 10^3/uL (150-450); RED BLOOD COUNT 4.45 10^6/uL (4.35-5.55); SEGMENTED NEUTROPHILS % (AUTO) 67.6 % (42-78); TOTAL CELLS COUNTED % (AUTO) 100 %; WHITE BLOOD COUNT 8.4 10^3/uL (4.0-10.5)
[2018-12-12 13:42] LABS: PROTHROMBIN TIME 13.2 SEC (11.4-15.4)
--- NOTE | 2018-12-12 13:59 | ER Document Report ---
ED Neuro Symptoms/Deficit - General Chief Complaint: S/S of Possible Stroke Stated Complaint: LEFT SIDE BODY WEAKNESS Time Seen by Provider: 12/12/18 13:29 Notes: Patient is here to be evaluated for numbness of his left arm and left leg and falling since last night. Patient was here as a patient last night for numbness and weakness of his left arm, but his symptoms had improved and he was felt able to be discharged home. He has had this problem previously about a year ago and [facility], without any significant findings. After leaving here last night, he fell about 3 AM, and was unable to get back up until this morning. He can now stand and walk with assistance. Still feels some numbness in the left arm and leg. Has some left-sided headache. Also felt some shortness of breath earlier today. He has not had any abdominal pains. Denies any chest pains. No recent illness or fever. TRAVEL OUTSIDE OF THE [place] IN LAST 30 DAYS: No - Related Data Allergies/Adverse Reactions: No Known Allergies Allergy (Verified 12/12/18 12:55) Past Medical History - Social History Smoking Status: Unknown if Ever Smoked Cigarette use (# per day): No Family History: CAD, DM, Hyperlipidemia, Hypertension, Malignancy, Thyroid Disfunction, Other - Black lung - Past Medical History Cardiac Medical History: Reports: Hx Heart Attack, Hx Hypercholesterolemia, Hx Hypertension Pulmonary Medical History: Reports: Hx Bronchitis Neurological Medical History: Denies: Hx Cerebrovascular Accident, Hx Seizures Endocrine Medical History: Reports: Hx Diabetes Mellitus Type 2, Hx Hypothyroidism Musculoskeletal Medical History: Reports Hx Arthritis, Reports Hx Musculoskeletal Trauma Traumatic Medical History: Reports: Hx Fractures - Immunizations Hx Diphtheria, Pertussis, Tetanus Vaccination: No Review of Systems - Review of Systems Notes: REVIEW OF SYSTEMS: CONSTITUTIONAL : Denies fever. EENT: Denies eye, ear, nose or mouth or throat pain or other symptoms. CARDIOVASCULAR: Denies chest pain. RESPIRATORY: Some difficulty breathing this morning. No cough or chest congestion. [place] GASTROINTESTINAL: Denies abdominal pain or nausea, vomiting, or diarrhea. GENITOURINARY: Denies difficulty or painful urinating, urinary frequency, blood in urine. MUSCULOSKELETAL: Denies back or neck pain. Denies joint pain or swelling. SKIN: Denies rash or skin lesions. NEUROLOGICAL: See HPI. Denies LOC or altered mental status. Left-sided headache. Denies sensory loss or motor deficits. ALL OTHER SYSTEMS REVIEWED AND NEGATIVE. Physical Exam - Vital signs Vitals: Pulse Ox 97 12/12/18 13:17 Interpretation: Normal Notes: PHYSICAL EXAMINATION: GENERAL: Well-appearing, in no acute distress. Appears uncomfortable. Vital signs are normal. HEAD: Atraumatic, normocephalic. EYES: Pupils equal round and reactive to light, extraocular movements intact. ENT: oropharynx clear without exudates. Moist mucous membranes. NECK: Normal range of motion, supple. No carotid bruits heard. LUNGS: Breath sounds clear and equal bilaterally. HEART: Regular rate and rhythm without murmurs. ABDOMEN: Soft, nontender. No guarding or rebound. No masses. BACK: No tenderness throughout entire back. EXTREMITIES: Normal range of motion without pain. NEUROLOGICAL: Normal speech, only can walk with assistance. Unsteady on his feet. Decreased route deliverer on the left. Patient is right-hand dominant. Normal s ensory and reflex exams. Awake, alert, and oriented x3. PSYCH: Normal mood, normal affect. SKIN: Warm, dry, no rashes. Course - Re-evaluation Re-evalutation: 12/12/18 14:06 Spoke with hospitalist who will admit the patient for observation. 12/12/18 14:11 Patient is outside of any window for administration of thrombolytic agents. Stroke symptoms have vacillated and has had the worst of his symptoms for nearly 12 hours now. - Vital Signs Vital signs: Temp Pulse Resp BP Pulse Ox 97 12/12/18 13:17 - Laboratory Result Diagrams: 12/12/18 13:20 12/12/18 13:20 Laboratory results interpreted by me: 12/12/18 13:20 Hgb 13.3 L - Diagnostic Test Radiology reviewed: Image reviewed, Reports reviewed - CT scan of the head is normal. - EKG Interpretation by Ia EKG shows normal: Sinus rhythm Rate: Normal Rhythm: NSR Discharge - Discharge Clinical Impression: Stroke Condition: Stable Disposition: ADMITTED OBSERVATION Admitting Provider: Hospitalist Unit Admitted: [facility]
[2018-12-12 14:03] LABS: ALANINE AMINOTRANSFERASE 26 U/L (21-72); ALBUMIN 4.4 g/dL (3.5-5.0); ALKALINE PHOSPHATASE 85 U/L (38-126); ANION GAP 11 (5-19); ASPARTATE AMINO TRANSFERASE 22 U/L (17-59); BILIRUBIN,DIRECT 0.2 mg/dL (0.0-0.4); BILIRUBIN,TOTAL 0.4 mg/dL (0.2-1.3); BLOOD UREA NITROGEN 20 mg/dL (7-20); CALCIUM 9.7 mg/dL (8.4-10.2); CARBON DIOXIDE 26 mmol/L (22-30); CHLORIDE 99 mmol/L (98-107); CREATINE KINASE 94 U/L (55-170); GLUCOSE 195 mg/dL (75-110); POTASSIUM 4.9 mmol/L (3.6-5.0); SODIUM 136.4 mmol/L (137-145); TOTAL PROTEIN 7.2 g/dL (6.3-8.2)
--- NOTE | 2018-12-12 14:17 | RADIOLOGY REPORT (SQ) ---
EXAM DESCRIPTION: CHEST SINGLE VIEW COMPLETED DATE/TIME: 12/12/2018 2:07 pm REASON FOR STUDY: left arm weakness COMPARISON: 12/11/2018 EXAM PARAMETERS: NUMBER OF VIEWS: One view. TECHNIQUE: Single frontal radiographic view of the chest acquired. RADIATION DOSE: NA LIMITATIONS: None. FINDINGS: LUNGS AND PLEURA: No opacities, masses or pneumothorax. No pleural effusion. MEDIASTINUM AND HILAR STRUCTURES: No masses. Contour normal. HEART AND VASCULAR STRUCTURES: Heart normal in size. Normal vasculature. BONES: No acute findings. HARDWARE: None in the chest. OTHER: No other significant finding. IMPRESSION: NO ACUTE RADIOGRAPHIC FINDING IN THE CHEST. TECHNICAL DOCUMENTATION: JOB ID: [id number] [employer]- All Rights Reserved Reading location - IP/workstation name: [email or web address]
[2018-12-12 14:31] LABS: CREATINE KINASE MB 1.29 ng/mL (<4.55); TROPONIN I < 0.012 ng/mL
[2018-12-12] MEDS ORDERED: ACETAMINOPHEN 325 MG TABLET PO PRN (16:11)
[2018-12-12] MEDS ORDERED: MAG HYDROX/AL HYDROX/SIMETH SUSP 30 ML UDCUP PO PRN (16:11)
[2018-12-12] MEDS ORDERED: ONDANSETRON 4 MG TAB.RAPDIS PO PRN (16:11)
--- NOTE | 2018-12-12 17:32 | PDOC H&P ---
History of Present Illness Admission Date/PCP: 12/12/18 14:28 [facility] Patient complains of: Left-sided weakness History of Present Illness: OTIS SEGURA is a 73 year old male past medical history of hypertension. The patient presented to the emergency department to be evaluated for numbness of his left arm and left leg and falling since last night. Patient was here as a patient last night for numbness and weakness of his left arm, but his symptoms had improved and he was felt able to be discharged home. The patient has had this problem previously about a year ago and was worked up by the [facility], who is his primary care, without any significant findings. After leaving here last night, he fell about 3 AM, and was unable to get back up until this morning. He can now stand and walk with assistance. Still feels some numbness in the left arm and leg. Has some left-sided headache. Also felt some shortness of breath earlier today. He has not had any abdominal pains. Denies any chest pains. No recent illness or fever. Past Medical History Cardiac Medical History: Reports: Myocardial Infarction, Hyperlipidema, Hypertension Pulmonary Medical History: Reports: Bronchitis Endocrine Medical History: Reports: Diabetes Mellitus Type 2, Hypothyroidism Musculoskeltal Medical History: Reports: Arthritis Past Surgical History Past Surgical History: Reports: None Social History Smoking Status: Unknown if Ever Smoked - Advance Directive Resuscitation Status: Do Not Resuscitate Surrogate healthcare decision maker:: who is present at the bedside kind of in the patient's care Family History Family History: CAD, DM, Hyperlipidemia, Hypertension, Malignancy, Thyroid Disfunction, Other - Black lung Parental Family History Reviewed: Yes Children Family History Reviewed: Yes Sibling(s) Family History Reviewed.: Yes Medication/Allergy Home Medications: Aspirin [Aspirin 325 mg Tablet] 325 mg PO QHS 12/12/18 Cyanocobalamin (Vitamin B-12) [Vitamin B-12 1000 Mcg Tablet] 1,000 mcg PO DAILY 12/12/18 Ergocalciferol (Vitamin D2) [Drisdol 50,000 Unit (1.25MG) Capsule] 50,000 unit PO MO@1000 12/12/18 Gabapentin [Neurontin 300 mg Capsule] 300 mg PO HSP PRN 12/12/18 Insulin Aspart [Novolog Flexpen] 0 unit SUBCUT .SLD SCALE 12/12/18 Insulin Glargine,Hum.rec.anlog [Lantus Insulin 100 Unit/1 ml 10 ml] 80 unit SUBCUT QHS 12/12/18 [place]-3 Fatty Acids/Fish Oil [Fish Oil 1,000 Mg Capsule] 2 each PO [id number] 12/12/18 Tamsulosin HCl [Flomax 0.4 mg Cap.sr] 0.4 mg PO QHS 12/12/18 Tramadol HCl [Ultram 50 mg Tablet] 50 mg PO Q12HP PRN 12/12/18 Levothyroxine Sodium [Synthroid 0.112 mg Tablet] 0.112 mg PO QAM 12/13/18 Allergies/Adverse Reactions: No Known Allergies Allergy (Verified 12/12/18 12:55) Review of Systems Constitutional: ABSENT: chills, fever(s), headache(s), weight gain, weight loss Eyes: ABSENT: visual disturbances Ears: ABSENT: hearing changes Cardiovascular: ABSENT: chest pain, dyspnea on exertion, edema, orthropnea, palpitations Respiratory: ABSENT: cough, hemoptysis Gastrointestinal: ABSENT: abdominal pain, constipation, diarrhea, hematemesis, hematochezia, nausea, vomiting Genitourinary: ABSENT: dysuria, hematuria Musculoskeletal: ABSENT: joint swelling Integumentary: ABSENT: rash, wounds Neurological: PRESENT: abnormal gait - Recent fall, other - Left upper extremity weakness. ABSENT: abnormal speech, confusion, dizziness, focal weakness, syncope Psychiatric: ABSENT: anxiety, depression, homidical ideation, suicidal ideation Endocrine: ABSENT: cold intolerance, heat intolerance, polydipsia, polyuria Hematologic/Lymphatic: ABSENT: easy bleeding, easy bruising Physical Exam Vital Signs: Temp Pulse Resp BP Pulse Ox 98.4 F 66 13 118/69 99 12/12/18 15:01 12/12/18 15:00 12/12/18 17:01 12/12/18 17:01 12/12/18 17:01 Intake & Output 12/10/18 12/11/18 12/12/18 23:59 23:59 23:59 Weight 115.9 kg General appearance: PRESENT: no acute distress, well-developed, well-nourished Head exam: PRESENT: atraumatic, normocephalic Eye exam: PRESENT: conjunctiva pink, EOMI, PERRLA. ABSENT: scleral icterus Ear exam: PRESENT: normal external ear exam Mouth exam: PRESENT: moist, tongue midline Neck exam: ABSENT: carotid bruit, JVD, lymphadenopathy, thyromegaly Respiratory exam: PRESENT: clear to auscultation kandace. ABSENT: rales, rhonchi, wheezes Cardiovascular exam: PRESENT: RRR. ABSENT: diastolic murmur, rubs, systolic murmur Pulses: PRESENT: normal dorsalis pedis pul Vascular exam: PRESENT: normal capillary refill GI/Abdominal exam: PRESENT: normal bowel sounds, soft. ABSENT: distended, guarding, mass, organolmegaly, rebound, tenderness Rectal exam: PRESENT: deferred Extremities exam: PRESENT: full ROM. ABSENT: calf tenderness, clubbing, pedal edema Neurological exam: PRESENT: alert, awake, oriented to person, oriented to place, oriented to time, oriented to situation, CN II-XII grossly intact, other - Slight weakness noted in the left hand. ABSENT: motor sensory deficit Psychiatric exam: PRESENT: appropriate affect, normal mood. ABSENT: homicidal ideation, suicidal ideation Skin exam: PRESENT: dry, intact, warm. ABSENT: cyanosis, rash Results Laboratory Results: 12/12/18 13:20 12/12/18 13:20 12/12/18 12/12/18 13:20 13:20 WBC 8.4 RBC 4.45 Hgb 13.3 L Hct 38.2 MCV 86 MCH 29.8 MCHC 34.7 RDW 14.0 Plt Count 220 Seg Neutrophils % 67.6 Lymphocytes % 21.5 Monocytes % 6.8 Eosinophils % 2.7 Basophils % 1.4 Absolute Neutrophils 5.7 Absolute Lymphocytes 1.8 Absolute Monocytes 0.6 Absolute Eosinophils 0.2 Absolute Basophils 0.1 Sodium 136.4 L Potassium 4.9 Chloride 99 Carbon Dioxide 26 Anion Gap 11 BUN 20 Creatinine 1.36 H Est GFR ( Amer) > 60 Est GFR (Non-Af Amer) 51 L Glucose 195 H Calcium 9.7 Total Bilirubin 0.4 AST 22 ALT 26 Alkaline Phosphatase 85 Total Protein 7.2 Albumin 4.4 12/12/18 12/12/18 13:20 13:20 Creatine Kinase 94 CK-MB (CK-2) 1.29 Troponin I < 0.012 Impressions: Head CT 12/12/18 00:00 IMPRESSION: No acute intracranial findings. EVIDENCE OF ACUTE STROKE: NO. Chest X-Ray 12/12/18 13:05 IMPRESSION: NO ACUTE RADIOGRAPHIC FINDING IN THE CHEST. Assessment & Plan - Diagnosis (1) Paresthesia of left upper limb Is this a current diagnosis for this admission?: Yes Plan: Will observe the patient in continuous telemetry. Initiate stroke protocol including carotids, echocardiogram, MRI. Place the patient on high intensity statin and aspirin. Will allow permissive hypertension. (2) Hypertension Qualifiers: Hypertension type: essential hypertension Qualified Code(s): I10 - Essential (primary) hypertension Is this a current diagnosis for this admission?: Yes Plan: Hold home medicines to give permissive hypertension (3) Hyperlipemia Qualifiers: Hyperlipidemia type: pure hypercholesterolemia Qualified Code(s): E78.00 - Pure hypercholesterolemia, unspecified; E78.0 - Pure hypercholesterolemia Is this a current diagnosis for this admission?: Yes Plan: Start high intensity statin (4) Diabetes mellitus type 2 in obese Is this a current diagnosis for this admission?: Yes Plan: We will resume home medication as well as sliding scale (5) Hypothyroidism Qualifiers: Hypothyroidism type: acquired Qualified Code(s): E03.9 - Hypothyroidism, unspecified Is this a current diagnosis for this admission?: Yes Plan: Will continue home medications. - Time Time Spent: 50 to 70 Minutes Medications reviewed and adjusted accordingly: Yes Anticipated discharge: Home Within: within 24 hours Disposition: The patient is a DO NOT RESUSCITATE DO NOT INTUBATE. Pending patient's symptomatology and diagnostic findings will reevaluate as needed.
[2018-12-12] MEDS: DOCUSATE SODIUM 100 MG CAPSULE PO SCH (18:46)
--- NOTE | 2018-12-12 20:53 | EKG REPORT ---
SEVERITY:- ABNORMAL ECG - SINUS RHYTHM NONSPECIFIC INTRAVENTRICULAR CONDUCTION DELAY : Confirmed by: Kathryn Fragoso MD 12-Dec-2018 20:52:48
--- NOTE | 2018-12-12 21:10 | RADIOLOGY REPORT (SQ) ---
EXAM DESCRIPTION: MR BRAIN WITHOUT IV CONTRAST COMPLETED DATE/TME: 12/12/2018 00:00 CLINICAL HISTORY: 73 years, Male, TIA COMPARISON: EXAM DESCRIPTION: CLINICAL HISTORY: TIA COMPARISON: 12/12/2018 CT head TECHNIQUE: Multiplanar multisequence imaging of the brain including the intravenous administration of contrast. FINDINGS: There is acutely abnormally restricted diffusion involving the lateral cortex of the right frontal lobe as well as the right triplett radiata and subcortical white matter of the right anterior lateral frontal lobe and anterior right putamen and the cortex of the superior posterior right frontal lobe. The largest of these lesions, located at the lateral aspect of the right frontal lobe cortex and subcortical white matter, and in the right triplett radiata, correspond to increased FLAIR signal intensity. These are consistent with acute ischemia greater than eight hours old. The remaining lesions are smaller and demonstrate mildly decreased signal on ADC but no definite increased FLAIR signal, and likely represent ischemia that may be less than eight hours old. No other definite acute abnormality is seen. No definite acute hemorrhage. No significant mass effect. IMPRESSION: Scattered foci of acute ischemia are seen. Some of the smaller lesions may be less than eight hours old but the largest lesions are greater than eight hours old by imaging criteria. No other acute abnormality.
[2018-12-12] MEDS: HEPARIN SOD (PORCINE) 5,000 UNIT/ML 1 ML SYRINGE SUBCUT SCH (21:40)
[2018-12-12] MEDS: ATORVASTATIN CALCIUM 80 MG TABLET PO SCH (21:44)
[2018-12-13] MEDS ORDERED: TRAMADOL HCL 50 MG TABLET PO PRN (03:25)
[2018-12-13] MEDS ORDERED: GABAPENTIN 300 MG CAPSULE PO PRN (03:26)
[2018-12-13] MEDS: HEPARIN SOD (PORCINE) 5,000 UNIT/ML 1 ML SYRINGE SUBCUT SCH ×3 (06:19→22:20)
[2018-12-13] MEDS ORDERED: OMEGA-3 ACID ETHYL ESTERS 1 GM CAPSULE PO SCH (08:00)
[2018-12-13 08:10] LABS: CHOLESTEROL 128.13 mg/dL (0-200); TRIGLYCERIDES 142 mg/dL (<150)
[2018-12-13 08:21] LABS: DIRECT LDL 59 mg/dL (<100)
[2018-12-13] MEDS: DOCUSATE SODIUM 100 MG CAPSULE PO SCH ×2 (09:57→17:11)
[2018-12-13] MEDS: CYANOCOBALAMIN (VITAMIN B-12) 1,000 MCG TABLET PO SCH (09:58)
[2018-12-13] MEDS ORDERED: ASPIRIN 81 MG TABLET, CHEWABLE PO SCH (10:00)
--- NOTE | 2018-12-13 12:35 | EKG REPORT ---
SEVERITY:- ABNORMAL ECG - SINUS RHYTHM NONSPECIFIC INTRAVENTRICULAR CONDUCTION DELAY : Confirmed by: Kathryn Fragoso MD 13-Dec-2018 12:35:05
[2018-12-13] MEDS ORDERED: DEXTROSE 50%-WATER 25 GM/50 ML DISP.SYRIN IV PRN ×2 (12:41)
[2018-12-13] MEDS ORDERED: DEXTROSE 40% GEL 15 GM TUBE PO PRN ×2 (12:41)
[2018-12-13] MEDS ORDERED: GLUCAGON,HUMAN RECOMB 1 MG INJ IM PRN (12:41)
--- NOTE | 2018-12-13 12:45 | XCELERA REPORT ---
[address] [address] Transthoracic Echocardiogram Report Name: OTIS SEGURA Age: 73 yrs Gender: Male : 1945 Patient Status: Inpatient Patient Location: [address] [place] [address] Study Date: 12/13/2018 10:37 AM Height: 72 in Weight: 245 lb BSA: 2.3 m2 Procedure: A two-dimensional transthoracic echocardiogram with color flow and Doppler was performed. Study Quality: Poor. Images were not obtained from all of the standard acoustic windows due to the limited scope of the study. Reason For Study: TIA History: TIA. Ordering Physician: ESTELA FRANCO Performed By: Mahendra Paige Interpretation Summary There is no obvious cardiac source of embolus noted on this transthoracic echocardiogram. Follow-up with a XU is suggested if cardiac source is still suspected. There is mild concentric left ventricular hypertrophy. The left ventricle is grossly normal size. No True apical 2 chamber views obtained.Hence cannot comment on the apical anterior , the basal anterior, the basal inferior and apical inferior hopkins.The mid anterior , the mid inferior and the rest of the LV hopkins contract normally. .Normal LVEF is normal and is low normal at 55% in the limited views. Doppler measurements suggest normal left ventricular diastolic function Not a study to assess for cardiac embolic source.recommend XU. Probably no .AR.MS,MR.TS , or TR.Unable to calculate RVSP , due to lack of TR jet.No pericardial effusion. There is no obvious cardiac source of embolus noted on this transthoracic echocardiogram. Follow-up with a XU is suggested if cardiac source is still suspected MMode/2D Measurements & Calculations RVDd: 3.9 cm LVIDd: 4.3 cm FS: 24.4 % Ao root diam: 3.0 cm IVSd: 1.2 cm LVIDs: 3.2 cm EDV(Teich): 82.0 ml Ao root area: 7.0 cm2 LVPWd: 1.2 cm ESV(Teich): 42.0 ml LA dimension: 3.2 cm EF(Teich): 48.8 % LVOT diam: 2.1 cm LVOT area: 3.5 cm2 Doppler Measurements & Calculations MV E max chandni: MV P1/2t max chandni: Ao V2 max: LV V1 max P.9 cm/sec 114.4 cm/sec 108.6 cm/sec 2.6 mmHg MV A max chandni: MV P1/2t: 71.3 msec Ao max PG: LV V1 max: 67.6 cm/sec MVA(P1/2t): 3.1 cm2 4.7 mmHg 80.5 cm/sec MV E/A: 1.2 MV dec slope: MARIA LUISA(V,D): 2.6 cm2 469.7 cm/sec2 MV dec time: 0.27 sec PA V2 max: MV P1/2t-pr_phl: 119.3 cm/sec 71.3 msec PA max P.7 mmHg Left Ventricle There is mild concentric left ventricular hypertrophy. The left ventricle is grossly normal size. No True apical 2 chamber views obtained.Hence cannot comment on the apical anterior , the basal anterior, the basal inferior and apical inferior hopkins.The mid anterior , the mid inferior and the rest of the LV hopkins contract normally. .Normal LVEF is normal and is low normal at 55% in the limited views. Doppler measurements suggest normal left ventricular diastolic function. Not a study to assess for cardiac embolic source.recommend XU. Probably no .AR.MS,MR.TS , or TR.Unable to calculate RVSP , due to lack of TR jet.No pericardial effusion. : ESTELA FRANCO > Kathryn Fraogso
[2018-12-13] MEDS: LEVOTHYROXINE SODIUM 0.112 MG TABLET PO SCH (13:25)
--- NOTE | 2018-12-13 13:27 | RADIOLOGY REPORT (SQ) ---
EXAM DESCRIPTION: CAROTID DOPPLER COMPLETED DATE/TIME: 12/13/2018 12:39 pm REASON FOR STUDY: CVA COMPARISON: None. TECHNIQUE: Grayscale ultrasound, Doppler velocity and spectra, and color Doppler images acquired of the extra-cranial carotid and vertebral arteries. Images stored on PACS. LIMITATIONS: None. FINDINGS: RIGHT CAROTID CCA Velocities: Within normal limits. ICA Velocities Peak systolic 2.07 m/s. End diastolic 0.91 m/s. Proximal ICA/CCA peak systolic ratio 2.6. Atherosclerotic plaque at the carotid bifurcation and at the internal carotid artery. LEFT CAROTID CCA Velocities: Within normal limits. ICA Velocities Peak systolic 1.34 m/s. End diastolic 0.48 m/s. Proximal ICA/CCA peak systolic ratio 1.1. Atherosclerotic plaque at the carotid bifurcation and at the internal carotid artery. VERTEBRAL ARTERIES: Antegrade flow. Normal waveforms. IMPRESSION: 1. 50 - 69% stenosis of the right internal carotid artery. 2. Less than 50% stenosis of the left internal carotid artery. COMMENT: Quality ID #[id number]: Velocity criteria are extrapolated from the diameter data as defined by t he Society of Radiologists in Ultrasound Consensus Conference. Radiology 2003: 229; 340-346. TECHNICAL DOCUMENTATION: JOB ID: [id number] [place] 2010 [employer]- All Rights Reserved Reading location - IP/workstation name: [email or web address]
[2018-12-13] MEDS: INSULIN LISPRO 100 UNIT/ML 3 ML VIAL SUBCUT SCH ×3 (15:08→22:21)
--- NOTE | 2018-12-13 15:49 | PDOC PROGRESS REPORT ---
Subjective Progress Note for:: 12/13/18 Subjective:: The patient was seen earlier today on rounds. is present at the bedside active in the patient's care. The patient continues to have paresthesias of the left arm but describes it is more tingling with more sensation. She does not appear to be able to move it is much as he did yesterday. The patient denies any nausea, vomiting, diarrhea, shortness of breath, dizziness, chest pain, heart palpitations, fevers, or chills. The patient has remained afebrile. Blood pressures have been in a good range. When prompted the patient voices no other concerns at this time. Review of systems: The rest of the review of systems is negative. Reason For Visit: Acute CVA Physical Exam Vital Signs: Temp Pulse Resp BP Pulse Ox 98.0 F 86 19 176/68 H 97 12/13/18 12:52 12/13/18 15:12 12/13/18 15:12 12/13/18 15:12 12/13/18 15:12 Intake & Output 12/11/18 12/12/18 12/13/18 23:59 23:59 23:59 Output Total 355 Balance -355 Weight 110.1 kg 112.5 kg On examination the patient is awake, alert, oriented, to person, place, time, and situation. The patient is verbal, conversational, ambulatory. Does not appear to be in any acute distress. Skin is warm and dry, no rash, not diaphoretic. HEENT: no JVD. Pupils are equal CVS: Heart is regular, is no murmur or rub. Chest: Is clear to auscultation. Abdomen: Is soft, bowel sounds present. Extremities: There is no edema. Psychiatric: Appropriate affect. Neurological: Left upper extremity weakness and paresthesia. Results Laboratory Results: 12/12/18 13:20 12/12/18 13:20 12/13/18 07:18 Triglycerides 142 Cholesterol 128.13 LDL Cholesterol Direct 59 VLDL Cholesterol 28.0 HDL Cholesterol 52 12/12/18 12/12/18 13:20 13:20 Creatine Kinase 94 CK-MB (CK-2) 1.29 Troponin I < 0.012 Impressions: Head CT 12/12/18 00:00 IMPRESSION: No acute intracranial findings. EVIDENCE OF ACUTE STROKE: NO. Head MRI 12/12/18 00:00 IMPRESSION: Scattered foci of acute ischemia are seen. Some of the smaller lesions may be less than eight hours old but the largest lesions are greater than eight hours old by imaging criteria. No other acute abnormality. Chest X-Ray 12/12/18 13:05 IMPRESSION: NO ACUTE RADIOGRAPHIC FINDING IN THE CHEST. Carotid Doppler Study 12/13/18 00:00 IMPRESSION: 1. 50 - 69% stenosis of the right internal carotid artery. 2. Less than 50% stenosis of the left internal carotid artery. Assessment & Plan - Diagnosis (1) Acute ischemic CVA Is this a current diagnosis for this admission?: Yes Plan: The patient is to be evaluated by all therapies. Carotid did have evidence of stenosis but not critical. The patient's echocardiogram had no specific finding. I recommended the patient be evaluated for acute rehabilitation. (2) Hypertension Qualifiers: Hypertension type: essential hypertension Qualified Code(s): I10 - Essential (primary) hypertension Is this a current diagnosis for this admission?: Yes Plan: Hold home medicines to give permissive hypertension (3) Hyperlipemia Qualifiers: Hyperlipidemia type: pure hypercholesterolemia Qualified Code(s): E78.00 - Pure hypercholesterolemia, unspecified; E78.0 - Pure hypercholesterolemia Is this a current diagnosis for this admission?: Yes Plan: Continue high intensity statin (4) Diabetes mellitus type 2 in obese Is this a current diagnosis for this admission?: Yes Plan: Resume home medication as well as sliding scale (5) Hypothyroidism Qualifiers: Hypothyroidism type: acquired Qualified Code(s): E03.9 - Hypothyroidism, unspecified Is this a current diagnosis for this admission?: Yes Plan: continue home medications. - Time Time Spent with patient: 25-34 minutes Medications reviewed and adjusted accordingly: Yes Anticipated discharge: Acute Rehab - Inpatient Certification Based on my medical assessment, after consideration of the patient's comorbidities, presenting symptoms, or acuity I expect that the services needed warrant INPATIENT care.: Yes I certify that my determination is in accordance with my understanding of Medicare's requirements for reasonable and necessary INPATIENT services [42 CFR 412.3e].: Yes Medical Necessity: Failure to Improve With Outpatient Therapy, Risk of Complication if Not Cared For in Hospital Post 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
[2018-12-13] MEDS: GABAPENTIN 300 MG CAPSULE PO PRN (20:34)
[2018-12-13] MEDS ORDERED: TAMSULOSIN HCL 0.4 MG CAP.SR.24H PO SCH (22:00)
[2018-12-13] MEDS ORDERED: INSULIN GLARGINE,HUM.REC.ANLOG 1,000 UNIT/10 ML UNIT SUBCUT SCH ×2 (22:00)
[2018-12-13] MEDS ORDERED: ASPIRIN 325 MG TABLET PO SCH (22:00)
[2018-12-13] MEDS: TAMSULOSIN HCL 0.4 MG CAP.SR.24H PO SCH (22:20)
[2018-12-13] MEDS: ATORVASTATIN CALCIUM 80 MG TABLET PO SCH (22:20)
[2018-12-13] MEDS: ASPIRIN 325 MG TABLET PO SCH (22:20)
[2018-12-14] MEDS: LEVOTHYROXINE SODIUM 0.112 MG TABLET PO SCH (05:22)
[2018-12-14] MEDS: TRAMADOL HCL 50 MG TABLET PO PRN (05:22)
[2018-12-14] MEDS: HEPARIN SOD (PORCINE) 5,000 UNIT/ML 1 ML SYRINGE SUBCUT SCH ×3 (05:23→21:33)
[2018-12-14 07:21] LABS: ANION GAP 11 (5-19); BLOOD UREA NITROGEN 16 mg/dL (7-20); CALCIUM 10.1 mg/dL (8.4-10.2); CARBON DIOXIDE 25 mmol/L (22-30); CHLORIDE 102 mmol/L (98-107); GLUCOSE 170 mg/dL (75-110); POTASSIUM 4.2 mmol/L (3.6-5.0); SODIUM 137.8 mmol/L (137-145)
[2018-12-14] MEDS: INSULIN LISPRO 100 UNIT/ML 3 ML VIAL SUBCUT SCH ×4 (08:08→23:57)
[2018-12-14] MEDS: CYANOCOBALAMIN (VITAMIN B-12) 1,000 MCG TABLET PO SCH (11:03)
[2018-12-14] MEDS: DOCUSATE SODIUM 100 MG CAPSULE PO SCH ×2 (11:03→20:09)
--- NOTE | 2018-12-14 13:32 | PDOC PROGRESS REPORT ---
Subjective Progress Note for:: 12/14/18 Subjective:: The patient was seen earlier today on rounds. is present at the bedside active in the patient's care. The patient continues to have some distal weakness in his arms however the paresthesias have resolved. He does not appear to be able to move more as he did yesterday. The patient actually sustained a mechanical fall yesterday. The patient got out of bed with his to attempt to use the urinal and his left leg gave way according to the patient. Denies striking his head and actually just sat down in the floor. The patient denies any nausea, vomiting, diarrhea, shortness of breath, dizziness, chest pain, heart palpitations, fevers, or chills. The patient has remained afebrile. Blood pressures have been in a good range. When prompted the patient voices no other concerns at this time. Review of systems: The rest of the review of systems is negative. Brief history: Patient was admitted on Saturday for having greater than 48 hours of intermittent left arm numbness and weakness. He did have a confirmed CVA. Work up has been done and the patient would like to go to acute rehab in [place]. Reason For Visit: ACUTE CVA Physical Exam Vital Signs: Temp Pulse Resp BP Pulse Ox 98.2 F 77 20 155/91 H 95 12/14/18 11:51 12/14/18 11:51 12/14/18 11:51 12/14/18 11:51 12/14/18 11:51 Intake & Output 12/12/18 12/13/18 12/15/18 23:59 23:59 00:59 Intake Total 1048 Output Total 1180 1040 Balance -132 -1040 Weight 110.1 kg 112.5 kg On examination the patient is awake, alert, oriented, to person, place, time, and situation. The patient is verbal, conversational, ambulatory. Does not appear to be in any acute distress. Skin is warm and dry, no rash, not diaphoretic. HEENT: no JVD. Pupils are equal CVS: Heart is regular, is no murmur or rub. Chest: Is clear to auscultation. Abdomen: Is soft, bowel sounds present. Extremities: There is no edema. Psychiatric: Appropriate affect. Neurological: Left upper extremity weakness remains but is improved Results Laboratory Results: 12/12/18 13:20 12/14/18 06:21 12/14/18 06:21 Sodium 137.8 Potassium 4.2 Chloride 102 Carbon Dioxide 25 Anion Gap 11 BUN 16 Creatinine 1.37 H Est GFR ( Amer) > 60 Est GFR (Non-Af Amer) 51 L Glucose 170 H Calcium 10.1 Magnesium 2.0 12/12/18 12/12/18 13:20 13:20 Creatine Kinase 94 CK-MB (CK-2) 1.29 Troponin I < 0.012 Impressions: Head CT 12/12/18 00:00 IMPRESSION: No acute intracranial findings. EVIDENCE OF ACUTE STROKE: NO. Head MRI 12/12/18 00:00 IMPRESSION: Scattered foci of acute ischemia are seen. Some of the smaller lesions may be less than eight hours old but the largest lesions are greater than eight hours old by imaging criteria. No other acute abnormality. Chest X-Ray 12/12/18 13:05 IMPRESSION: NO ACUTE RADIOGRAPHIC FINDING IN THE CHEST. Carotid Doppler Study 12/13/18 00:00 IMPRESSION: 1. 50 - 69% stenosis of the right internal carotid artery. 2. Less than 50% stenosis of the left internal carotid artery. Assessment & Plan - Diagnosis (1) Acute ischemic CVA Is this a current diagnosis for this admission?: Yes Plan: The patient is to be evaluated by all therapies. Carotid did have evidence of stenosis but not critical. The patient's echocardiogram had no specific finding. Consult placed for acute rehabilitation. The patient is on aspirin therapy and high intensity statin. Consider adding Plavix at discharge. (2) Hypertension Qualifiers: Hypertension type: essential hypertension Qualified Code(s): I10 - Essential (primary) hypertension Is this a current diagnosis for this admission?: Yes Plan: Hold home medicines to give permissive hypertension (3) Hyperlipemia Qualifiers: Hyperlipidemia type: pure hypercholesterolemia Qualified Code(s): E78.00 - Pure hypercholesterolemia, unspecified; E78.0 - Pure hypercholesterolemia Is this a current diagnosis for this admission?: Yes Plan: Start high intensity statin (4) Diabetes mellitus type 2 in obese Is this a current diagnosis for this admission?: Yes Plan: We will resume home medication as well as sliding scale (5) Hypothyroidism Qualifiers: Hypothyroidism type: acquired Qualified Code(s): E03.9 - Hypothyroidism, unspecified Is this a current diagnosis for this admission?: Yes Plan: Will continue home medications. - Time Time Spent with patient: 25-34 minutes Medications reviewed and adjusted accordingly: Yes Anticipated discharge: Acute Rehab Within: within 48 hours, when bed available Disposition: The patient is a DO NOT RESUSCITATE DO NOT INTUBATE. Pending patient's symptomatology and diagnostic findings will reevaluate as needed.
[2018-12-14] MEDS: ATORVASTATIN CALCIUM 80 MG TABLET PO SCH (21:33)
[2018-12-14] MEDS: GABAPENTIN 300 MG CAPSULE PO PRN (21:33)
[2018-12-14] MEDS: TAMSULOSIN HCL 0.4 MG CAP.SR.24H PO SCH (21:33)
[2018-12-14] MEDS: ASPIRIN 325 MG TABLET PO SCH (21:34)
[2018-12-14] MEDS: INSULIN GLARGINE,HUM.REC.ANLOG 1,000 UNIT/10 ML UNIT SUBCUT SCH (23:57)
[2018-12-15] MEDS: HEPARIN SOD (PORCINE) 5,000 UNIT/ML 1 ML SYRINGE SUBCUT SCH ×3 (06:37→21:25)
[2018-12-15] MEDS: LEVOTHYROXINE SODIUM 0.112 MG TABLET PO SCH (06:39)
[2018-12-15] MEDS: INSULIN LISPRO 100 UNIT/ML 3 ML VIAL SUBCUT SCH ×4 (08:46→21:26)
[2018-12-15] MEDS: DOCUSATE SODIUM 100 MG CAPSULE PO SCH ×2 (09:47→17:35)
[2018-12-15] MEDS: CYANOCOBALAMIN (VITAMIN B-12) 1,000 MCG TABLET PO SCH (09:47)
[2018-12-15] MEDS ORDERED: ERGOCALCIFEROL (VITAMIN D2) 50000 UNIT (1.25 MG) CAPSULE PO SCH (10:00)
--- NOTE | 2018-12-15 13:45 | PDOC PROGRESS REPORT ---
Subjective Progress Note for:: 12/15/18 Subjective:: This is a 73 yr old male who initially presented with left sided numbness and weakness. He presented way beyond the window and was not a TPA candidate. He was found to have an acute CVA on MRI. No acute event overnight. He continues to have left arm and left leg weakness, 0/5. Blood pressures are at goal. He is going to acute rehab. Reason For Visit: ACUTE CVA Physical Exam Vital Signs: Temp Pulse Resp BP Pulse Ox 97.7 F 82 14 146/70 H 96 12/15/18 12:08 12/15/18 12:08 12/15/18 12:08 12/15/18 12:08 12/15/18 12:08 Intake & Output 12/14/18 12/15/18 12/16/18 06:59 06:59 06:59 Intake Total 1144 233 Output Total 1800 100 Balance -656 133 Weight 248 lb 0.321 oz General appearance: PRESENT: no acute distress, well-developed, well-nourished Head exam: PRESENT: atraumatic, normocephalic Eye exam: PRESENT: conjunctiva pink, EOMI, PERRLA. ABSENT: scleral icterus Ear exam: PRESENT: normal external ear exam Mouth exam: PRESENT: moist, tongue midline Neck exam: ABSENT: carotid bruit, JVD, lymphadenopathy, thyromegaly Respiratory exam: PRESENT: clear to auscultation kandace. ABSENT: rales, rhonchi, wheezes Cardiovascular exam: PRESENT: RRR. ABSENT: diastolic murmur, rubs, systolic murmur Pulses: PRESENT: normal dorsalis pedis pul GI/Abdominal exam: PRESENT: normal bowel sounds, soft. ABSENT: distended, guarding, mass, organolmegaly, rebound, tenderness Rectal exam: PRESENT: deferred Neurological exam: PRESENT: alert, awake, oriented to person, oriented to place, oriented to time, oriented to situation, CN II-XII grossly intact, motor sensory deficit - 0/5 on the left arm and left leg Results Laboratory Results: 12/12/18 13:20 12/14/18 06:21 12/12/18 12/12/18 13:20 13:20 Creatine Kinase 94 CK-MB (CK-2) 1.29 Troponin I < 0.012 Impressions: Head CT 12/12/18 00:00 IMPRESSION: No acute intracranial findings. EVIDENCE OF ACUTE STROKE: NO. Head MRI 12/12/18 00:00 IMPRESSION: Scattered foci of acute ischemia are seen. Some of the smaller lesions may be less than eight hours old but the largest lesions are greater than eight hours old by imaging criteria. No other acute abnormality. Chest X-Ray 12/12/18 13:05 IMPRESSION: NO ACUTE RADIOGRAPHIC FINDING IN THE CHEST. Carotid Doppler Study 12/13/18 00:00 IMPRESSION: 1. 50 - 69% stenosis of the right internal carotid artery. 2. Less than 50% stenosis of the left internal carotid artery. Assessment & Plan - Diagnosis (1) Acute ischemic CVA Is this a current diagnosis for this admission?: Yes Plan: He was not a TPA candidate. Continue aspirin and atorvastatin. He will be going to acute rehab. (2) Acute kidney injury Is this a current diagnosis for this admission?: Yes Plan: Appears his last creatinine was higher from his baseline. Will recheck BMP today. (3) Diabetes mellitus type 2 in obese Is this a current diagnosis for this admission?: Yes Plan: Blood sugars close to goal. Continue Lantus and sliding scale. - Time Time Spent with patient: 15-24 minutes
[2018-12-15 15:05] LABS: ANION GAP 12 (5-19); BLOOD UREA NITROGEN 20 mg/dL (7-20); CARBON DIOXIDE 25 mmol/L (22-30); CHLORIDE 98 mmol/L (98-107); GLUCOSE 276 mg/dL (75-110); POTASSIUM 4.4 mmol/L (3.6-5.0); SODIUM 134.8 mmol/L (137-145)
[2018-12-15] MEDS: TAMSULOSIN HCL 0.4 MG CAP.SR.24H PO SCH (21:25)
[2018-12-15] MEDS: ASPIRIN 325 MG TABLET PO SCH (21:25)
[2018-12-15] MEDS: ATORVASTATIN CALCIUM 80 MG TABLET PO SCH (21:25)
[2018-12-15] MEDS: INSULIN GLARGINE,HUM.REC.ANLOG 1,000 UNIT/10 ML UNIT SUBCUT SCH (21:26)
[2018-12-16] MEDS: LEVOTHYROXINE SODIUM 0.112 MG TABLET PO SCH (06:15)
[2018-12-16] MEDS: HEPARIN SOD (PORCINE) 5,000 UNIT/ML 1 ML SYRINGE SUBCUT SCH ×3 (06:16→21:32)
[2018-12-16] MEDS: INSULIN LISPRO 100 UNIT/ML 3 ML VIAL SUBCUT SCH ×4 (07:48→21:33)
[2018-12-16] MEDS: CYANOCOBALAMIN (VITAMIN B-12) 1,000 MCG TABLET PO SCH (09:34)
[2018-12-16] MEDS: DOCUSATE SODIUM 100 MG CAPSULE PO SCH ×2 (09:34→17:07)
[2018-12-16] MEDS: GABAPENTIN 300 MG CAPSULE PO PRN (14:04)
--- NOTE | 2018-12-16 15:14 | PDOC TRANSFER SUMMARY ---
General - Admit/Disc Date/PCP Admission Date/Primary Care Provider: 12/13/18 15:[facility] Discharge Date: 12/16/18 - Discharge Diagnosis (1) Acute ischemic CVA Is this a current diagnosis for this admission?: Yes Summary: He will continue with aspirin and high-dose statin medication. He is being discharged to subacute rehabilitation. (2) Left hemiparesis Is this a current diagnosis for this admission?: Yes Summary: He has residual left hemiparesis from his acute CVA. He will be discharged for subacute rehabilitation. (3) Acute kidney injury Is this a current diagnosis for this admission?: Yes Summary: Improving. (4) Diabetes mellitus type 2 in obese Is this a current diagnosis for this admission?: Yes Summary: Continue home regimen (5) Hyperlipemia Is this a current diagnosis for this admission?: Yes Summary: Continue high-dose statin medication (6) Hypertension Is this a current diagnosis for this admission?: Yes Summary: Stable (7) Hypothyroidism Is this a current diagnosis for this admission?: Yes Summary: Continue Synthroid (8) Hyponatremia Is this a current diagnosis for this admission?: Yes Summary: This is quite mild and likely chronic. (9) Do not resuscitate Is this a current diagnosis for this admission?: Yes - Additional Information Resuscitation Status: Do Not Resuscitate Discharge Diet: Cardiac Discharge Activity: Activity As Tolerated, Balance Activity w/Rest, Slowly Increase Activity, Supervised Activity Prescriptions: Tramadol HCl [Ultram 50 mg Tablet] 50 mg PO Q12HP PRN #14 tablet PRN Reason: For Pain Home Medications: Aspirin [Aspirin 325 mg Tablet] 325 mg PO QHS 12/12/18 Gabapentin [Neurontin 300 mg Capsule] 300 mg PO HSP PRN 12/12/18 [facility]-3 Fatty Acids/Fish Oil [Fish Oil 1,000 mg Capsule] 2 each PO [id number] 12/12/18 Tamsulosin HCl [Flomax 0.4 mg Cap.sr] 0.4 mg PO QHS 12/12/18 Levothyroxine Sodium [Synthroid 0.112 mg Tablet] 0.112 mg PO QAM 12/13/18 Acetaminophen [Tylenol 325 mg Tablet] 650 mg PO Q4HP PRN tablet 12/16/18 Atorvastatin Calcium [Lipitor 80 mg Tablet] 80 mg PO QHS tablet 12/16/18 Cyanocobalamin (Vitamin B-12) [Vitamin B-12 1000 mcg Tablet] 1,000 mcg PO DAILY tablet 12/16/18 Docusate Sodium [Colace 100 mg Capsule] 100 mg PO BID capsule 12/16/18 Ergocalciferol (Vitamin D2) [Drisdol 50,000 unit (1.25MG) Capsule] 50,000 unit PO Mo@1000 capsule 12/16/18 Insulin Glargine,Hum.rec.anlog [Lantus Insulin 100 Unit/1 ml 10 ml] 40 unit SUBCUT QHS unit 12/16/18 Insulin Lispro [Humalog Insulin (Lispro) 100 unit/mL] 0 - 12 unit SUBCUT ACHS unit 12/16/18 Mag Hydrox/Al Hydrox/Simeth [Maalox Plus Susp 30 Udcup] 30 ml PO Q6HP PRN udc 12/16/18 Ondansetron [Zofran Odt 4 mg Tablet] 4 mg PO Q8HP PRN tab.rapdis 12/16/18 Tramadol HCl [Ultram 50 mg Tablet] 50 mg PO Q12HP PRN #14 tablet 12/16/18 History of Present Illness Admission Date/PCP: 12/13/18 15[facility] History of Present Illness: OTIS SEGURA is a 73 year old male who presented to the emergency room after having a fall and developing left arm and left leg numbness. Hospital Course Hospital Course: The patient was admitted to the hospital.. MRI revealed an acute CVA. He had residual left hemiparesis which really did not improve much over the course of this hospitalization. He had carotid Dopplers performed which revealed a 50-69% occlusion of the right ICA and less than 5650% stenosis of the left ICA. 2D ech ocardiogram was unremarkable as well. The patient was started on aspirin and high-dose statin medication. He is being discharged today to subacute rehabilitation. He is extremely weak but is quite anxious to start working with therapy. At this point maximum hospital benefits been reached. He will be discharged today to begin his rehabilitation. Physical Exam Vital Signs: Temp Pulse Resp BP Pulse Ox 98.3 F 93 16 156/79 H 95 12/16/18 11:28 12/16/18 14:00 12/16/18 11:28 12/16/18 11:28 12/16/18 11:28 Intake & Output 12/15/18 12/16/18 12/17/18 06:59 06:59 06:59 Intake Total 1144 470 118 Output Total 1800 325 50 Balance -656 145 68 Weight 112.5 kg 109.9 kg General appearance: PRESENT: no acute distress, well-developed, well-nourished Head exam: PRESENT: atraumatic, normocephalic Eye exam: PRESENT: conjunctiva pink, EOMI, PERRLA. ABSENT: scleral icterus Mouth exam: PRESENT: moist, tongue midline Neck exam: ABSENT: carotid bruit, JVD, lymphadenopathy, thyromegaly Respiratory exam: PRESENT: clear to auscultation kandace. ABSENT: rales, rhonchi, wheezes Cardiovascular exam: PRESENT: RRR. ABSENT: diastolic murmur, rubs, systolic murmur Pulses: PRESENT: normal dorsalis pedis pul GI/Abdominal exam: PRESENT: normal bowel sounds, soft. ABSENT: distended, guarding, mass, organolmegaly, rebound, tenderness Rectal exam: PRESENT: deferred Extremities exam: PRESENT: full ROM. ABSENT: calf tenderness, clubbing, pedal edema Musculoskeletal exam: ABSENT: ambulatory Neurological exam: PRESENT: alert, awake, oriented to person, oriented to place, oriented to time, oriented to situation, CN II-XII grossly intact. ABSENT: motor sensory deficit Psychiatric exam: PRESENT: appropriate affect, normal mood. ABSENT: homicidal ideation, suicidal ideation Skin exam: PRESENT: dry, intact, warm. ABSENT: cyanosis, rash Results Laboratory Results: 12/12/18 13:20 12/15/18 14:32 12/15/18 14:32 Sodium 134.8 L Potassium 4.4 Chloride 98 Carbon Dioxide 25 Anion Gap 12 BUN 20 Creatinine 1.29 H Est GFR ( Amer) > 60 Est GFR (Non-Af Amer) 54 L Glucose 276 H Calcium 10.0 12/12/18 12/12/18 13:20 13:20 Creatine Kinase 94 CK-MB (CK-2) 1.29 Troponin I < 0.012 Impressions: Head CT 12/12/18 00:00 IMPRESSION: No acute intracranial findings. EVIDENCE OF ACUTE STROKE: NO. Head MRI 12/12/18 00:00 IMPRESSION: Scattered foci of acute ischemia are seen. Some of the smaller lesions may be less than eight hours old but the largest lesions are greater than eight hours old by imaging criteria. No other acute abnormality. Chest X-Ray 12/12/18 13:05 IMPRESSION: NO ACUTE RADIOGRAPHIC FINDING IN THE CHEST. Carotid Doppler Study 12/13/18 00:00 IMPRESSION: 1. 50 - 69% stenosis of the right internal carotid artery. 2. Less than 50% stenosis of the left internal carotid artery. Transfer Plan - Disposition Transfer Plan: The patient will be discharged to subacute rehabilitation today in stable cond ition. - Time Spent with Patient Time spent with patient: Greater than 30 Minutes Qualifiers - * PATIENT BEING DISCHARGED WITH ANY OF THE FOLLOWING DIAGNOSIS: Stroke VTE patient discharged on overlapping Therapy?: No Reason(s) for not prescribing Overlap Therapy:: Not indicated Stroke Pt being discharged on Anti-thrombolytic therapy?: Yes Stroke Pt being discharged on Anti-coagulation therapy?: No Reason(s) for not prescribing Anti-coagulation therapy:: Not indicated Stroke Pt being discharged on Statins?: Yes
[2018-12-16] MEDS: TRAMADOL HCL 50 MG TABLET PO PRN (16:46)
[2018-12-16] MEDS: TAMSULOSIN HCL 0.4 MG CAP.SR.24H PO SCH (21:32)
[2018-12-16] MEDS: ATORVASTATIN CALCIUM 80 MG TABLET PO SCH (21:32)
[2018-12-16] MEDS: INSULIN GLARGINE,HUM.REC.ANLOG 1,000 UNIT/10 ML UNIT SUBCUT SCH (21:32)
[2018-12-16] MEDS: ASPIRIN 325 MG TABLET PO SCH (21:32)
[2018-12-17] MEDS: LEVOTHYROXINE SODIUM 0.112 MG TABLET PO SCH (05:17)
[2018-12-17] MEDS: HEPARIN SOD (PORCINE) 5,000 UNIT/ML 1 ML SYRINGE SUBCUT SCH ×2 (05:17→15:07)
[2018-12-17] MEDS: TRAMADOL HCL 50 MG TABLET PO PRN ×2 (05:22→16:31)
[2018-12-17 06:29] LABS: ABSOLUTE BASOPHILS # (AUTO) 0.1 10^3/uL (0.0-0.2); ABSOLUTE EOSINOPHILS # (AUTO) 0.3 10^3/uL (0.0-0.6); ABSOLUTE LYMPHOCYTES (AUTO) 2.2 10^3/uL (0.5-4.7); ABSOLUTE MONOCYTES (AUTO) 1.1 10^3/uL (0.1-1.4); ABSOLUTE NEUT (AUTO) 6.2 10^3/uL (1.7-8.2); BASOPHILS % (AUTO) 1.1 % (0-2); EOSINOPHILS % (AUTO) 2.6 % (0-6); HEMATOCRIT 38.9 % (37.9-51.0); HEMOGLOBIN 13.5 g/dL (13.5-17.0); LYMPHOCYTES % (AUTO) 22.4 % (13-45); MEAN CORPUSCULAR HEMOGLOBIN 29.4 pg (27.0-33.4); MEAN CORPUSCULAR HGB CONC 34.6 g/dL (32.0-36.0); MEAN CORPUSCULAR VOLUME 85 fl (80-97); PLATELET COUNT 206 10^3/uL (150-450); RED BLOOD COUNT 4.57 10^6/uL (4.35-5.55); RED CELL DISTRIBUTION WIDTH 13.8 % (11.5-14.0); SEGMENTED NEUTROPHILS % (AUTO) 62.9 % (42-78); TOTAL CELLS COUNTED % (AUTO) 100 %; WHITE BLOOD COUNT 9.9 10^3/uL (4.0-10.5)
[2018-12-17 06:50] LABS: ANION GAP 9 (5-19); BLOOD UREA NITROGEN 22 mg/dL (7-20); CALCIUM 9.7 mg/dL (8.4-10.2); CARBON DIOXIDE 24 mmol/L (22-30); CHLORIDE 100 mmol/L (98-107); GLUCOSE 239 mg/dL (75-110); POTASSIUM 4.5 mmol/L (3.6-5.0); SODIUM 133.4 mmol/L (137-145)
[2018-12-17] MEDS: INSULIN LISPRO 100 UNIT/ML 3 ML VIAL SUBCUT SCH ×3 (08:33→12:22)
[2018-12-17] MEDS: DOCUSATE SODIUM 100 MG CAPSULE PO SCH (09:22)
[2018-12-17] MEDS: CYANOCOBALAMIN (VITAMIN B-12) 1,000 MCG TABLET PO SCH (09:24)
[2018-12-17 12:47] VITALS: BP 141/82
[2018-12-17] MEDS: GABAPENTIN 300 MG CAPSULE PO PRN (16:31)
== END 2018-12-17 16:47 | DRG 65 ==
LOC: ER 12:52 → OBSVTOIN 14:28 → INTOOBSV 14:28 → EH 14:28 → 3S 18:00 → OBSVTOIN 12-13 15:41
PROVIDERS: ADMIT Internal Medicine; ATTEND Internal Medicine
DX: I63.9 Cerebral infarction, unspecified (principal); N17.9 Acute kidney failure, unspecified; E87.1 Hypo-osmolality and hyponatremia; G81.94 Hemiplegia, unspecified affecting left nondominant side; I10 Essential (primary) hypertension; I25.2 Old myocardial infarction; E11.9 Type 2 diabetes mellitus without complications; E03.9 Hypothyroidism, unspecified; M19.90 Unspecified osteoarthritis, unspecified site; Z91.81 History of falling; Z66 Do not resuscitate; Z82.49 Family history of ischemic heart disease and other diseases of the circulatory system; Z83.3 Family history of diabetes mellitus; Z79.82 Long term (current) use of aspirin; Z79.4 Long term (current) use of insulin; Z79.899 Other long term (current) drug therapy; E78.5 Hyperlipidemia, unspecified
CPT/HCPCS: 36415; 70450; 70551; 71045; 80048; 80053; 80061; 82550; 82553; 82962; 83735; 84484; 85025; 85610; 85730; 93005; 93010; 93306; 93880; 99285; G0378; J1644; J1815; J3490

== ENCOUNTER 2020-01-22 18:12 | Emergency (ER) | payer OTHER, MEDICARE ==
[2020-01-22 19:25] LABS: APPEARANCE,URINE CLEAR; BILIRUBIN,URINE NEGATIVE (NEGATIVE); COLOR,URINE YELLOW; GLUCOSE, URINE NEGATIVE (NEGATIVE); KETONES,URINE NEGATIVE (NEGATIVE); PROTEIN,URINE NEGATIVE (NEGATIVE); UROBILINOGEN,URINE NEGATIVE mg/dL (<2.0)
--- NOTE | 2020-01-22 21:00 | ER Document Report ---
ED General - General Chief Complaint: Inability to Void Stated Complaint: UNABLE TO URINATE Time Seen by Provider: 01/22/20 20:46 Primary Care Provider: WILLA GAMA NP [Primary Care Provider] - Follow up as needed Mode of Arrival: Medic Information source: Patient Notes: 74-year-old male arrives by EMS after having problems urinating today. Patient has a history of left hemiparesis status post CVA hypertension hyperlipidemia diabetes and he is on Flomax and Neurontin L-thyroxine insulin Zofran Lipitor aspirin. Patient reports he has been seeing his personal doctor with similar problems for several months and has been on Flomax because of this. He reports when he attempts to urinate sometimes he does and sometimes he does not but always has a feeling of residual fullness in his bladder. Today he urinated 120 mL spontaneously but on bladder scan he had around 200 mL still retained in his bladder. He opted not to get a catheterization today but rather go on some medicines to help this. I advised him to follow-up with his personal doctor about this and may need a urologist consult.Rosaura Hall RN spoke with and she advised that he has left ear pain sore on his penis and constipation. This is not been addressed with his family practice and therefore I suspect patient was sent here for a family practice type evaluation in addition to his major complaints. Inspection of his penis reveals leukoplakia and he advises he has been seen by a foundry hand for this. His left ear reveals cerumen TRAVEL OUTSIDE OF THE [place] IN LAST 30 DAYS: No - HPI Onset: Just prior to arrival Onset/Duration: Sudden Quality of pain: No pain Severity: None Associated symptoms: None Exacerbated by: Denies Relieved by: Denies Similar symptoms previously: Yes Recently seen / treated by doctor: No - Related Data Allergies/Adverse Reactions: No Known Allergies Allergy (Verified 12/12/18 12:55) Home Medications: amlodipine. aspirin. gabapentin. synthroid. tramadol Past Medical History - General Information source: Patient - Social History Smoking Status: Unknown if Ever Smoked Cigarette use (# per day): No Chew tobacco use (# tins/day): No Smoking Education Provided: No Frequency of alcohol use: None Drug Abuse: None Lives with: Family Family History: CAD, DM, Hyperlipidemia, Hypertension, Malignancy, Thyroid Disfunction, Other - Black lung Patient has suicidal ideation: No Patient has homicidal ideation: No - Past Medical History Cardiac Medical History: Reports: Hx Heart Attack, Hx Hypercholesterolemia, Hx Hypertension Pulmonary Medical History: Reports: Hx Bronchitis Neurological Medical History: Denies: Hx Cerebrovascular Accident, Hx Seizures Endocrine Medical History: Reports: Hx Diabetes Mellitus Type 2, Hx Hypothyroidism Renal/ Medical History: Denies: Hx Peritoneal Dialysis Musculoskeletal Medical History: Reports Hx Arthritis, Reports Hx Musculoskeletal Trauma Traumatic Medical History: Reports: Hx Fractures - Immunizations Hx Diphtheria, Pertussis, Tetanus Vaccination: No Hx Pneumococcal Vaccination: 10/07/17 Review of Systems - Review of Systems Constitutional: No symptoms reported EENT: No symptoms reported Cardiovascular: No symptoms reported Respiratory: No symptoms reported Gastrointestinal: No symptoms reported Genitourinary: No symptoms reported Male Genitourinary: See HPI, Other - Inability to urinate but upon arrival patient unable to urinate into a cup 120 mL Musculoskeletal: No symptoms reported Skin: No symptoms reported Hematologic/Lymphatic: No symptoms reported Neurological/Psychological: No symptoms reported Physical Exam - Vital signs Vitals: Temp Pulse Resp BP Pulse Ox 97.9 F 55 L 18 138/53 H 95 01/22/20 18:16 01/22/20 18:16 01/22/20 18:16 01/22/20 18:16 01/22/20 18:16 Interpretation: Bradycardic - General General appearance: Alert - HEENT Head: Normocephalic Eyes: Normal Pupils: PERRL Tympanic membrane: Normal - On the right but left is occluded by cerumen. Ear canal is mildly hirsute. Patient reports he uses peroxide and alcohol combination in order to clean out his left ear. Hearing loss: Left Mouth/Lips: Normal Pharynx: Normal - Respiratory Respiratory status: No respiratory distress Chest status: Nontender Breath sounds: Normal Chest palpation: Normal - Cardiovascular Rhythm: Regular Heart sounds: Normal auscultation Murmur: No - Abdominal Inspection: Normal, Obese Distension: No distension Bowel sounds: Normal Tenderness: Nontender Organomegaly: No organomegaly - Genitourinary Tenderness: Lesions - Glans of penis with leukoplakia patient reports he has seen a foundry hand about this and put him on a medicine that was obtained [id number]. Patient denies any history of balanitis xerotica obliterans; pt has not been on triamcinolone and vit A Cremasteric reflex: Normal Scrotum: Normal - I examined this patient with Isabel CARLISLE - Back Back: Normal - Extremities General upper extremity: Normal inspection General lower extremity: Other - Weakness left leg - Neurological Neuro grossly intact: Yes Cognition: Normal Orientation: AAOx4 [place] Coma Scale Eye Opening: Spontaneous [place] Coma Scale Verbal: Oriented [place] Coma Scale Motor: Obeys Commands [place] Coma Scale Total: 15 Speech: Normal Cranial nerves: Normal Cerebellar coordination: Normal - Psychological Associated symptoms: Normal affect - Skin Skin Temperature: Warm Skin Moisture: Dry Skin Color: Other - Except for pale white skin patch around 1 cm diameter of glans of penis Course - Vital Signs Vital signs: Temp Pulse Resp BP Pulse Ox 98.3 F 62 20 117/65 98 01/22/20 20:01 01/22/20 20:01 01/22/20 20:01 01/22/20 20:01 01/22/20 20:01 - Laboratory Laboratory results interpreted by me: 01/22/20 18:50 Urine Ascorbic Acid 40 H - Diagnostic Test Radiology reviewed: Reports reviewed Critical Care Note - Critical Care Note Total time excluding time spent on procedures (mins): 90 Discharge - Discharge Clinical Impression: Mild urinary retention, Leucoplakia of penis BPH (benign prostatic hyperplasia) Qualifiers: Lower urinary tract symptom presence: unspecified whether lower urinary tract symptoms present Qualified Code(s): N40.0 - Benign prostatic hyperplasia without lower urinary tract symptoms Constipated Qualifiers: Constipation type: unspecified constipation type Qualified Code(s): K59.00 - Constipation, unspecified Condition: Good Disposition: HOME, SELF-CARE Additional Instructions: Follow-up with your personal doctor this week and return to ER as needed and take medicines as directed and may need a urology consult for your urinary retention. And for your leukoplakia of penis Prescriptions: Dutasteride [Avodart Lf 0.5 mg Capsule] 0.5 mg PO DAILY #10 capsule Misoprostol [Cytotec 0.2 mg Tablet] 200 mcg PO DAILY #30 tablet Clotrimazole/Betamethasone Dip [Lotrisone Cream 15 gm] 1 applic TP DAILY #1 tube Triamcinolone Acetonide 1 applic TP DAILY 10 Days #80 oint..gm. Referrals: WILLA GAMA NP [Primary Care Provider] - Follow up as needed
--- NOTE | 2020-01-22 22:45 | RADIOLOGY REPORT (SQ) ---
EXAM DESCRIPTION: XR ABDOMEN 1 VIEW (KUB) COMPLETED DATE/TME: 01/22/2020 21:36 CLINICAL HISTORY: 74 years Male constipation COMPARISON: None. FINDINGS: Moderate fecal material in the colon particularly in the rectosigmoid which may reflect constipation or impaction. No evidence of free intraperitoneal air. Hemidiaphragms are not included. Degenerative changes in the lumbar spine. IMPRESSION: Moderate fecal material in the colon which may reflect constipation No evidence of bowel obstruction
[2020-01-22] MEDS ORDERED: TRAMADOL HCL 50 MG TABLET PO ONE (23:49)
[2020-01-22] MEDS ORDERED: GABAPENTIN 300 MG CAPSULE PO ONE (23:50)
[2020-01-23 00:10] VITALS: BP 149/49
== END 2020-01-23 00:35 | disposition home or self-care (01) ==
LOC: ER 18:12
DX: N40.0 Benign prostatic hyperplasia without lower urinary tract symptoms (principal); R33.9 Retention of urine, unspecified; N48.0 Leukoplakia of penis; K59.00 Constipation, unspecified; H61.22 Impacted cerumen, left ear; H92.02 Otalgia, left ear; Z86.73 Personal history of transient ischemic attack (TIA), and cerebral infarction without residual deficits; I10 Essential (primary) hypertension; E78.5 Hyperlipidemia, unspecified; E11.9 Type 2 diabetes mellitus without complications; Z79.899 Other long term (current) drug therapy; Z79.4 Long term (current) use of insulin; Z79.82 Long term (current) use of aspirin; I25.2 Old myocardial infarction
CPT/HCPCS: 36415; 74018; 81001; 84153; 99285